=== PATIENT | female | born 1945 | race Caucasian/White ===

== ENCOUNTER 2017-10-09 09:06 | Outpatient (CLI) | payer MEDICARE ==
[2017-10-09 17:59] LABS: BUN - BLOOD UREA NITROGEN 24 mg/dL (6-20); CALCIUM 9.6 mg/dL (8.5-10.3); CARBON DIOXIDE - CO2 25 mmol/L (21-32); CHLORIDE 102 mmol/L (101-111); CHOL/HDL RATIO 4.1 (<4.4); CHOLESTEROL 194 mg/dL; GFR - MDRD 55 (>89); GLUCOSE 139 mg/dL (70-100); HDL CHOLESTEROL 47 mg/dL; LDL CHOLESTEROL,CALCULATED 102 mg/dL; LDL/HDL RATIO 2.2 (<4.4); SODIUM 137 mmol/L (135-145); VLDL CHOLESTEROL 45 mg/dL
[2017-10-09 18:01] LABS: HB2 TOTAL 13.1 g/dL; HEMOGLOBIN A1C 0.75 g/dL; HEMOGLOBIN A1C % 7.4 % (4.6-6.2)
== END 2017-10-09 09:07 | disposition home or self-care (01) ==
LOC: LAB.F 09:06
PROVIDERS: ATTEND Internal Medicine
DX: I10 Essential (primary) hypertension (principal); E11.9 Type 2 diabetes mellitus without complications
CPT/HCPCS: 36415; 80048; 80061; 82043; 83036; 83721; 84443

== ENCOUNTER 2018-04-01 11:55 | Outpatient (CLI) | payer MEDICARE ==
--- NOTE | 2018-04-14 16:07 | Mammography Report ---
Reason: SCREENING MAMMO Procedure Date: 04/01/2018 Accession Number: [id number] / [id number] Procedure: MGN - Screening Mammo Dig Bilat CPT Code: FULL RESULT: EXAM: Screening Mammo Dig Bilat DATE: 04/01/2018 12:13 PM CLINICAL HISTORY: 73 year-old nulliparous female with family history of breast cancer in the mother at age 80 and sister at age 72. TECHNIQUE: Bilateral CC and MLO views were obtained. COMPARISON: No comparison mammograms are available at the time of interpretation. FINDINGS: The breasts demonstrate scattered fibroglandular densities bilaterally. No suspicious masses, clustered microcalcifications, or regions of architectural distortion are identified. IMPRESSION: Negative examination RECOMMENDATION: Routine annual screening unless otherwise clinically indicated. BIRADS CATEGORY 1: Negative STANDARD QUALIFYING STATEMENTS: 1. This examination was reviewed without the aid of Computer-Aided Detection (CAD). 2. A negative or benign imaging report should not delay biopsy if clinically suspicious findings are present. Consider surgical consultation if warrented. More than 5% of cancers are not identified by imaging. 3. Dense breasts may obscure an underlying neoplasm.
== END 2018-04-01 11:56 | disposition home or self-care (01) ==
LOC: DI.N 11:55
DX: Z12.31 Encounter for screening mammogram for malignant neoplasm of breast (principal); Z85.3 Personal history of malignant neoplasm of breast
CPT/HCPCS: 77067

== ENCOUNTER 2018-04-03 15:12 | Outpatient (CLI) | payer MEDICARE ==
[2018-04-03 18:01] LABS: HB2 TOTAL 13.5 g/dL; HEMOGLOBIN A1C 0.75 g/dL; HEMOGLOBIN A1C % 7.2 % (4.6-6.2)
== END 2018-04-03 15:13 | disposition home or self-care (01) ==
LOC: LAB.F 15:12
PROVIDERS: ATTEND Internal Medicine
DX: E11.9 Type 2 diabetes mellitus without complications (principal)
CPT/HCPCS: 36415; 83036

== ENCOUNTER 2018-05-06 08:00 | Outpatient (CLI) | payer MEDICARE | END 2018-05-06 23:59 | LOC: LAB.R 08:00 | PROVIDERS: ATTEND Internal Medicine | DX: Z12.11 Encounter for screening for malignant neoplasm of colon (principal) | CPT/HCPCS: 82270 ==

== ENCOUNTER 2018-10-14 12:49 | Outpatient (CLI) | payer MEDICARE ==
[2018-10-14 17:58] LABS: CREATININE,URINE 90.7 mg/dL; MICROALBUM/CREATININE RATIO,UR 4.4 ug/mg (<30.0); MICROALBUMIN,URINE 0.4 mg/dL (0-300.0)
[2018-10-14 18:00] LABS: ALBUMIN 4.3 g/dL (3.2-5.5); ALBUMIN/GLOBULIN RATIO 1.2 (1.0-2.2); ALKALINE PHOSPHATASE 76 IU/L (42-121); ALT ALANINE AMINOTRANSFERASE 37 IU/L (10-60); AST ASPARTATE AMINOTRANSFERASE 31 IU/L (10-42); BILIRUBIN,TOTAL 0.6 mg/dL (0.2-1.0); BUN - BLOOD UREA NITROGEN 30 mg/dL (6-20); CALCIUM 10.1 mg/dL (8.5-10.3); CARBON DIOXIDE - CO2 29 mmol/L (21-32); CHLORIDE 104 mmol/L (101-111); CHOL/HDL RATIO 4.3 (<4.4); CHOLESTEROL 204 mg/dL; CREATININE 1.1 mg/dL (0.4-1.0); GFR - MDRD 49 (>89); GLUCOSE 133 mg/dL (70-100); HDL CHOLESTEROL 48 mg/dL; LDL CHOLESTEROL,CALCULATED 91 mg/dL; LDL/HDL RATIO 1.9 (<4.4); SODIUM 141 mmol/L (135-145); TOTAL PROTEIN 7.8 g/dL (6.7-8.2); VLDL CHOLESTEROL 65 mg/dL
[2018-10-14 18:42] LABS: HB2 TOTAL 12.6 g/dL; HEMOGLOBIN A1C 0.74 g/dL; HEMOGLOBIN A1C % 7.5 % (4.6-6.2)
== END 2018-10-14 12:50 | disposition home or self-care (01) ==
LOC: LAB.F 12:49
PROVIDERS: ATTEND Internal Medicine
DX: E78.5 Hyperlipidemia, unspecified (principal); E11.9 Type 2 diabetes mellitus without complications
CPT/HCPCS: 36415; 80053; 80061; 82043; 82570; 83036; 83721

== ENCOUNTER 2019-04-03 10:52 | Outpatient (CLI) | payer MEDICARE ==
--- NOTE | 2019-04-06 17:14 | Mammography Report ---
Reason: SCREENING MAMMO Procedure Date: 04/03/2019 Accession Number: [id number] / [id number] Procedure: MGS - Screening Mammo Dig Bilat CPT Code: FULL RESULT: EXAM: Screening Mammo Dig Bilat DATE: 04/03/2019 11:15 AM CLINICAL HISTORY: Routine screening TECHNIQUE: (B) - Bilateral CC and MLO views were obtained. COMPARISON: 04/01/2018, 03/26/2017 and 03/19/2016 PARENCHYMAL PATTERN: (A) - The breasts demonstrate scattered fibroglandular densities bilaterally. FINDINGS: No significant interval change. There are no suspicious masses, calcifications, or areas of distortion. IMPRESSION: Negative examination. BI-RADS category 1. RECOMMENDATION: (ANNUAL) - Recommend routine annual screening mammography. BI-RADS CATEGORY: (1) - Negative. STANDARD QUALIFYING STATEMENTS: 1. This examination was not reviewed with the aid of Computer-Aided Detection (CAD). 2. A negative or benign imaging report should not preclude biopsy if clinically suspicious findings are present. 3. Dense breasts may obscure an underlying neoplasm. 4. This examination was reviewed without the aid of 3D breast imaging (tomosynthesis).
== END 2019-04-03 10:53 | disposition home or self-care (01) ==
LOC: DI.S 10:52
DX: Z12.31 Encounter for screening mammogram for malignant neoplasm of breast (principal)
CPT/HCPCS: 77067

== ENCOUNTER 2019-06-02 11:34 | Outpatient (CLI) | payer MEDICARE ==
[2019-06-02 17:59] LABS: % IRON SATURATION 26 % (20-50); IRON 110 ug/dL (28-170); TOTAL IRON BINDING CAPACITY 430 ug/dL (250-450); TRANSFERRIN 307 mg/dL (192-382)
[2019-06-02 18:01] LABS: FERRITIN 124.2 ng/mL (11.0-306.8)
== END 2019-06-02 11:35 | disposition home or self-care (01) ==
LOC: LAB.S 11:34
PROVIDERS: ATTEND Psychiatry & Neurology Neurology
DX: E11.69 Type 2 diabetes mellitus with other specified complication (principal); R25.1 Tremor, unspecified; R25.2 Cramp and spasm
CPT/HCPCS: 36415; 82607; 82728; 83540; 84466

== ENCOUNTER 2019-08-16 13:53 | Emergency (ER) | payer MEDICARE ==
--- NOTE | 2019-08-16 15:56 | CT Report ---
Reason: trauma Procedure Date: 08/16/2019 Accession Number: [id number] / [id number] Procedure: CT - HEAD WO CPT Code: Final Report FULL RESULT: EXAM: CT HEAD EXAM DATE: 08/16/2019 03:32 PM CLINICAL HISTORY: Trauma. COMPARISON: NONE TECHNIQUE: Multiaxial CT images were obtained from the foramen magnum to the vertex. Reformats: Sagittal and coronal. IV contrast: None. In accordance with CT protocol optimization, one or more of the following dose reduction techniques were utilized for this exam: automated exposure control, adjustment of mA and/or KV based on patient size, or use of iterative reconstructive technique. FINDINGS: There is mild cerebral atrophy and mild multifocal chronic appearing white matter disease, likely from microangiopathy. No evidence of intracranial hemorrhage, mass lesion or mass effect. No cortical infarct. Ventricles are mildly prominent consistent with atrophy. No evidence of focal extraaxial fluid collection. Clear paranasal sinuses and mastoid air cells. Intact skull. IMPRESSION: Chronic brain changes. No acute abnormality. RADIA
[2019-08-16] MEDS ORDERED: PROMETHAZINE INJ 25 MG in SODIUM CHLORIDE 0.9% 50 ML IV STA (16:32)
[2019-08-16] MEDS ORDERED: KETOROLAC 30 MG/ML VIAL IVP STA (16:32)
[2019-08-16] MEDS ORDERED: SODIUM CHLORIDE 0.9% 1,000 ML IV ONE (16:32)
[2019-08-16] MEDS ORDERED: CYCLOBENZAPRINE 10 MG TABLET PO STA (16:33)
[2019-08-16] MEDS ORDERED: DEXAMETHASONE 10 MG/ML VIAL IVP STA (16:33)
--- NOTE | 2019-08-16 16:33 | ED Physician Documentation ---
PD HPI HEAD INJURY - Stated complaint Stated Complaint: MOSQUERA - Chief complaint Chief Complaint: Neuro - History obtained from History obtained from: Patient, Friend - History of Present Illness Mechanism of head injury: Fell Where head injury occurred: Home Timing - onset: How many days ago (5) Pain level now: >10 ("[id number]") Location of injury: Other (Right hip) Associated symptoms: Neck pain. No: LOC, AMS, Amnesia, Nausea / vomiting, Paresthesias Symptoms improve with: Other (Robaxin seem to take the edge off) Symptoms worsen with: Palpation, Movement, Light Recently seen: Not recently seen - Additional information Additional information: This is a 74-year-old woman who fell 5 days ago landing on her right hip and she thinks that she possibly hit her head but did not pass out. Over the past 72 hours she is developed an increasingly more and more "horrible" headache. Across the back of her neck kind of across the shoulders across the occipital ridge and across the forehead. She in the past 24 hours has had 1,500 mg of Tylenol, 1500 mg of ibuprofen and 2 Robaxin. The Robaxin seems to maybe have taken the edge off and there is been sometimes that she has been able to sleep. Her last dose of medication was around 7 AM a gram of Tylenol. She has not felt dizzy or noted any visual changes. She does not have any weakness or paresthesias into the arms or legs. She has been a little bit nauseous but no vomiting. 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 She also coughed 1 time in the emergency department waiting room and had pain across her lower back. She is been having diarrhea which she attributes to antibiotics that she was placed on for a dental infection 3 days ago. She had one time when she blew air out of her nose and it felt a little restricted but she has not had a lot of nasal congestion. No fever. No significant coughing. No palpitations. She is diabetic and has high blood pressure and has not been able to take her medications today because of the nausea. Her friend who is with her has tried to heat and ice the back where she is having pain and has tried massaging it. The heat actually seem to make things worse. Review of Systems Constitutional: denies: Fever Eyes: reports: Photophobia. denies: Loss of vision, Decreased vision Ears: denies: Ear pain Nose: denies: Rhinorrhea / runny nose, Congestion Throat: reports: Dental pain / toothache Respiratory: denies: Cough GI: reports: Nausea, Diarrhea. denies: Vomiting : denies: Incontinent Musculoskeletal: reports: Neck pain, Back pain, Joint pain (Her right hip is little sore). denies: Extremity pain Neurologic: reports: Headache, Head injury. denies: Focal weakness, Numbness, Near syncope, Syncope, Confused, Altered mental status, LOC PD PAST MEDICAL HISTORY - Present Medications Home Medications: Ambulatory Orders Medication Instructions Recorded Confirmed Cyclobenzaprine [Flexeril] 10 mg PO TID PRN #20 tablet 08/16/19 - Allergies Allergies/Adverse Reactions: Allergies Allergy/AdvReac Type Severity Reaction Status Date / Time No Known Drug Allergies Allergy Verified 08/16/19 14:13 PD ED PE NORMAL - Vitals Vital signs reviewed: Yes - General General: Alert and oriented X 3, No acute distress, Well developed/nourished - HEENT HEENT: Atraumatic, PERRL, EOMI, Moist mucous membranes, Pharynx benign - Neck Neck: No bony TTP, No adenopathy, Other (Patient is sitting with her chin down to her chest because lifting her head up seems to make the pain worse. 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 [id number] is intact. She is noted to have a resting tremor and reports a history of essential tremor.) - Psych Psych: Normal mood, Normal affect Results - Vitals Vitals: Vital Signs - 24 hr 08/16/19 08/16/19 08/16/19 14:10 16:20 18:59 Temperature 36.7 C 37.2 C Heart Rate 107 H 95 94 Respiratory 17 16 12 Rate Blood Pressure 144/78 H 167/95 H 135/73 H O2 Saturation 97 99 96 Oxygen O2 Source Room air - Rads (name of study) ct head Radiology: See rad report (neg acute) PD MEDICAL DECISION MAKING - ED course Complexity details: reviewed results, re-evaluated patient, d/w patient ED course: 1749: Patient's head CT was negative and this was discussed with her. I really felt this was more musculoskeletal and she had an IV started was given Toradol 30 mg, Phenergan 25 mg, Decadron 10 mg IV. She was given Flexeril Orally and a liter of fluids. On reevaluation she said her headache was down to about a 6 out of 10 but now had pinpoint tenderness right at the 2 spinous process and really felt like the pain was all emanating from there. Have ordered a CT of the neck and also 2 mg of morphine IV. 1814: CT of the neck is still pending. Care will be turned over to Dr. Hook to follow-up on that but have already written discharge instructions as well as a prescription for Flexeril. Plan for discharge if the CT of the neck is without fracture. Departure - Departure Disposition: 01 Home, Self Care Clinical Impression: Headache Qualifiers: Headache type: unspecified Headache chronicity pattern: acute headache Intractability: not intractable Qualified Code(s): R51 - Headache Cervical strain, acute Qualifiers: Encounter type: initial encounter Qualified Code(s): S16.1XXA - Strain of muscle, fascia and tendon at neck level, initial encounter Condition: Good Instructions: ED Headache Tension, ED Sprain Strain Neck Follow-Up: Merrill Ovalles MD [Primary Care Provider] - Prescriptions: Cyclobenzaprine [Flexeril] 10 mg PO TID PRN #20 tablet PRN Reason: Spasms Comments: Ice your neck and upper back. Avoid heat or aggressive massage or water beating on it. Continue to take ibuprofen and you have been provided a prescription for Flexeril if needed you can take that up to 3 times a day just do not drive or operate machinery if you are taking it. Follow-up with your primary care provider if your pain continues for consideration of physical therapy. On the CT of your neck you do have an incidental 2 cm thyroid nodule, Discuss this with your primary care physician, the radiologist recommends a nonemergent thyroid ultrasound. Discharge Date/Time: 08/16/19 19:02
[2019-08-16] MEDS ORDERED: MORPHINE 2 MG/ML CARPUJECT IVP STA (17:53)
--- NOTE | 2019-08-16 18:40 | CT Report ---
Reason: neck pain Procedure Date: 08/16/2019 Accession Number: [id number] / [id number] Procedure: CT - CERVICAL SPINE WO CPT Code: Final Report FULL RESULT: EXAM: CT CERVICAL SPINE WITHOUT CONTRAST DATE: 08/16/2019 06:12 PM. HISTORY: Neck pain. COMPARISONS: None. TECHNIQUE: Thin-section axial images were acquired of the cervical spine without contrast. Post-processing: Coronal and sagittal reformats. Other: None. In accordance with CT protocol optimization, one or more of the following dose reduction techniques were utilized for this exam: automated exposure control, adjustment of mA and/or KV based on patient size, or use of iterative reconstructive technique. FINDINGS: Alignment: No scoliosis or spondylolisthesis. Bones: No fracture or bone lesion. Interspace Levels/Facets: No acute malalignment. Moderate C4-C5, C5-C6, C6-C7, C7-T1 disk level degenerative changes with disk height loss and osteophytosis. No significant central canal stenosis seen at a level. Moderate left and mild right C4-C5 neural foraminal stenoses secondary to multifactorial degenerative changes. Mild C5-C6 and C6-C7 left-sided neural foraminal stenosis secondary to multifactorial degenerative changes. Other: The paravertebral and prevertebral soft tissues are unremarkable. The lung apices are clear. Approximately 2 cm left thyroid nodule. IMPRESSION: 1. Moderate cervical spondylosis without acute abnormality seen. 2. Approximately 2 cm left thyroid nodule. ACR recommends nonemergent thyroid ultrasound for further evaluation. RADIA
--- NOTE | 2019-08-16 18:52 | ED Physician Documentation ---
ED Addendum - Addendum Addendum: 08/16/19 18:45 Patient signed out to me at shift change by Dr. Velazquez. Briefly this is a woman who has had a posttraumatic headache and at signout the plan was to follow-up on cervical spine CT and check on her symptoms. The cervical spine CT was read as having multiple level spondylosis and a thyroid nodule needing follow-up. This was discussed with the patient. 08/16/19 18:54 Her headache was much better though and she verbalized understanding of the need for follow-up regarding the cervical spine CT and incidental finding.
[2019-08-16] MEDS ORDERED: HYDROcod/ACET 5/325 Prepack 4 PO STA (18:54)
[2019-08-16 19:00] VITALS: BP 135/73
== END 2019-08-16 19:02 | disposition home or self-care (01) ==
LOC: ED 13:53
DX: G44.309 Post-traumatic headache, unspecified, not intractable (principal); S16.1XXA Strain of muscle, fascia and tendon at neck level, initial encounter; W19.XXXA Unspecified fall, initial encounter; E04.1 Nontoxic single thyroid nodule
CPT/HCPCS: 70450; 72125; 96365; 96375; 99284; A9270; J7040

== ENCOUNTER 2019-10-02 14:48 | Outpatient (CLI) | payer MEDICARE ==
[2019-10-02 17:55] LABS: BASOPHILS # (AUTO) 0.1 10^3/uL (0.0-0.1); BASOPHILS % (AUTO) 1.1 %; EOSINOPHILS # (AUTO) 0.3 10^3/uL (0.0-0.7); EOSINOPHILS % (AUTO) 4.6 %; HGB - HEMOGLOBIN 11.6 g/dL (12.0-16.0); LYMPHOCYTES # (AUTO) 1.1 10^3/uL (1.5-3.5); LYMPHOCYTES % (AUTO) 20.1 %; MEAN CORPUSCULAR HEMOGLOBIN 30.6 pg (27.0-31.0); MEAN CORPUSCULAR HGB CONC 31.9 g/dL (32.0-36.0); MEAN PLATELET VOLUME 12.7 fL (7.9-10.8); MONOCYTES # (AUTO) 0.6 10^3/uL (0.0-1.0); MONOCYTES % (AUTO) 10.8 %; NEUTROPHILS # (AUTO) 3.4 10^3/uL (1.5-6.6); NEUTROPHILS % (AUTO) 62.8 %; PLT - PLATELET COUNT 210 10^3/uL (130-450); RED BLOOD COUNT 3.79 10^6/uL (4.20-5.40); RED CELL DISTRIBUTION WIDTH 12.9 % (12.0-15.0); WHITE BLOOD COUNT 5.4 x10^3/uL (4.8-10.8)
[2019-10-02 18:09] LABS: ALBUMIN 4.1 g/dL (3.2-5.5); ALBUMIN/GLOBULIN RATIO 1.2 (1.0-2.2); BILIRUBIN,TOTAL 0.4 mg/dL (0.2-1.0); CALCIUM 10.6 mg/dL (8.5-10.3); CREATININE 1.1 mg/dL (0.4-1.0); TOTAL PROTEIN 7.5 g/dL (6.7-8.2)
[2019-10-02 18:49] LABS: HEMOGLOBIN A1C 0.83 g/dL; HEMOGLOBIN A1C % 8.5 % (4.6-6.2)
== END 2019-10-02 14:49 | disposition home or self-care (01) ==
LOC: LAB.S 14:48
PROVIDERS: ATTEND Family Medicine
DX: G50.0 Trigeminal neuralgia (principal); E11.9 Type 2 diabetes mellitus without complications
CPT/HCPCS: 36415; 80053; 83036; 85025

== ENCOUNTER 2019-10-05 09:31 | Outpatient (CLI) | payer MEDICARE ==
[2019-10-05 17:20] LABS: CHOL/HDL RATIO 4.1 (<4.4); CHOLESTEROL 173 mg/dL; HDL CHOLESTEROL 42 mg/dL; LDL CHOLESTEROL,CALCULATED 84 mg/dL; VLDL CHOLESTEROL 47 mg/dL
== END 2019-10-05 09:32 | disposition home or self-care (01) ==
LOC: LAB.S 09:31
PROVIDERS: ATTEND Family Medicine
DX: E78.5 Hyperlipidemia, unspecified (principal)
CPT/HCPCS: 36415; 80061; 83721

== ENCOUNTER 2019-11-05 12:49 | Outpatient (CLI) | payer MEDICARE ==
[2019-11-05] MEDS ORDERED: GADOBUTROL 7.5 MMOL/7.5 ML VIAL ONE (12:58)
[2019-11-05] MEDS ORDERED: GADOBUTROL 7.5 MMOL/7.5 ML VIAL IVP ONE (13:54)
--- NOTE | 2019-11-05 17:37 | MRI Report ---
Reason: HEADACHE, TRIGEMINAL NEURALGIA, RT Procedure Date: 11/05/2019 Accession Number: [id number] / [id number] Procedure: MRI - Brain W/WO CPT Code: Final Report FULL RESULT: EXAM: MRI BRAIN AND INTERNAL AUDITORY CANAL (IAC),WITHOUT AND WITH CONTRAST. EXAM DATE: 11/05/2019 02:15 PM. CLINICAL HISTORY: 74-year-old presenting with headache and right-sided trigeminal neuralgia symptoms. Evaluate for intracranial pathology. COMPARISON: HEAD W/O 08/16/2019 3:24 PM CERVICAL SPINE W/O 08/16/2019 6:10 PM. TECHNIQUE: Multiplanar, multisequence T1-weighted and fluid-sensitive MRI sequences of the brain and IACs were performed before and after administration of intravenous contrast. Other: None. IV Contrast: 6 cc Gadavist. FINDINGS: Brain Volume: Normal for age. Parenchyma/Dura: No acute parenchymal hemorrhage, mass, or midline shift. There are mild to moderate bilateral areas of T2/FLAIR signal hyperintensity seen including patchy FLAIR signal hyperintensity within the alex. There are no areas of restricted diffusion seen to suggest acute infarct.There are no abnormal areas of parenchymal hemosiderin deposition seen. No abnormal enhancement. Internal Auditory Canals (IACs): There is a 7 mm loop of the left AICA that projects into the left internal auditory canal. There appears to be a vascular structure, possibly a branch of the right ICA that appears to abut the superior aspect of the right trigeminal nerve (series 901, image 57). No cranial nerve lesion or inflammatory process identified. The inner ear structure are symmetric and unremarkable. Ventricles/Cisterns: No hydrocephalus. No abnormal extra-axial fluid collection or hemorrhage. Orbits: Changes of bilateral lens replacement. Sella Turcica: The pituitary gland, cavernous sinuses, suprasellar cistern and optic chiasm are unremarkable. Vasculature: Normal signal flow void is seen in the major arterial structures at the skull base. The dural sinuses are patent and enhance normally. Sinuses: No acute sinus disease. Bones: No focal pathologic appearing marrow signal changes. Other: None. IMPRESSION: 1. No definite acute intracranial pathology seen; specifically, no acute infarct, acute intracranial hemorrhage, mass, hydrocephalus, or midline shift. No abnormal postcontrast enhancement. 2. No definite mass or inflammatory process seen within the posterior fossa or internal auditory canals. 3. There appears to be a vascular structure, possibly a branch of the right ICA that appears to abut the superior aspect of the right trigeminal nerve (series 901, image 57). Clinical correlation for potential neurovascular compromise is suggested. 4. There is a 7 mm loop of the left AICA that projects into the left internal auditory canal. 5. Mild to moderate white matter changes that are nonspecific, but may represent sequela of chronic small vessel ischemic disease. RADIA
== END 2019-11-05 12:50 | disposition home or self-care (01) ==
LOC: DI 12:49
PROVIDERS: ATTEND Family Medicine
DX: G50.0 Trigeminal neuralgia (principal)
CPT/HCPCS: 70553; A9585

== ENCOUNTER 2020-01-15 11:40 | Outpatient (CLI) | payer MEDICARE ==
[2020-01-15 12:09] LABS: HB2 TOTAL 12.4 g/dL; HEMOGLOBIN A1C 0.78 g/dL; HEMOGLOBIN A1C % 7.9 % (4.6-6.2)
[2020-01-15 12:13] LABS: ALBUMIN 4.2 g/dL (3.2-5.5); ALBUMIN/GLOBULIN RATIO 1.1 (1.0-2.2); ALKALINE PHOSPHATASE 117 IU/L (42-121); ALT ALANINE AMINOTRANSFERASE 57 IU/L (10-60); AST ASPARTATE AMINOTRANSFERASE 64 IU/L (10-42); BILIRUBIN,TOTAL 0.7 mg/dL (0.2-1.0); BUN - BLOOD UREA NITROGEN 28 mg/dL (6-20); CARBON DIOXIDE - CO2 26 mmol/L (21-32); CHLORIDE 102 mmol/L (101-111); CHOL/HDL RATIO 4.5 (<4.4); CHOLESTEROL 195 mg/dL; CREATININE 1.4 mg/dL (0.4-1.0); GLUCOSE 156 mg/dL (70-100); HDL CHOLESTEROL 43 mg/dL; LDL CHOLESTEROL,CALCULATED 111 mg/dL; LDL/HDL RATIO 2.6 (<4.4); SODIUM 138 mmol/L (135-145); TOTAL PROTEIN 7.9 g/dL (6.7-8.2); VLDL CHOLESTEROL 41 mg/dL
== END 2020-01-15 11:41 | disposition home or self-care (01) ==
LOC: LAB 11:40
PROVIDERS: ATTEND Internal Medicine
DX: E11.9 Type 2 diabetes mellitus without complications (principal)
CPT/HCPCS: 36415; 80053; 80061; 83036; 83721

== ENCOUNTER 2020-04-11 11:30 | Outpatient (CLI) | payer MEDICARE ==
[2020-04-11 16:06] LABS: BASOPHILS # (AUTO) 0.1 10^3/uL (0.0-0.1); BASOPHILS % (AUTO) 1.1 %; EOSINOPHILS # (AUTO) 0.2 10^3/uL (0.0-0.7); EOSINOPHILS % (AUTO) 4.6 %; HGB - HEMOGLOBIN 12.5 g/dL (12.0-16.0); LYMPHOCYTES # (AUTO) 0.8 10^3/uL (1.5-3.5); LYMPHOCYTES % (AUTO) 18.8 %; MEAN CORPUSCULAR HEMOGLOBIN 30.6 pg (27.0-31.0); MEAN CORPUSCULAR HGB CONC 31.5 g/dL (32.0-36.0); MEAN CORPUSCULAR VOLUME 97.3 fL (81.0-99.0); MEAN PLATELET VOLUME 11.9 fL (7.9-10.8); MONOCYTES # (AUTO) 0.6 10^3/uL (0.0-1.0); MONOCYTES % (AUTO) 12.6 %; NEUTROPHILS # (AUTO) 2.7 10^3/uL (1.5-6.6); NEUTROPHILS % (AUTO) 62.4 %; PLT - PLATELET COUNT 241 10^3/uL (130-450); RED BLOOD COUNT 4.08 10^6/uL (4.20-5.40); WHITE BLOOD COUNT 4.4 x10^3/uL (4.8-10.8)
[2020-04-11 16:18] LABS: ALBUMIN 4.5 g/dL (3.2-5.5); ALBUMIN/GLOBULIN RATIO 1.3 (1.0-2.2); BILIRUBIN,TOTAL 0.9 mg/dL (0.2-1.0); CALCIUM 10.3 mg/dL (8.5-10.3); CREATININE 0.9 mg/dL (0.4-1.0)
--- NOTE | 2020-04-11 18:13 | XRAY Report ---
PROCEDURE: Ribs w/PA Chest RT INDICATIONS: RIB PAIN, RIGHT SIDE TECHNIQUE: 2 views of the right ribs were acquired, along with a single view chest. COMPARISON: No dedicated rib plain films available for review. FINDINGS: Surgical changes and devices: None. Bones and chest wall: No fractures or dislocations. No suspicious bony lesions. Overlying soft tis sues appear unremarkable. A plain film surface marker was placed in the area of maximal tenderness r ight lower ribs, but this is below the diaphragm level, largely obscured by overlying soft tissue. Lungs and pleura: No pleural effusions or pneumothorax. Lungs appear clear. Mediastinum: Mediastinal contours appear normal. Heart size is normal. IMPRESSION: Limited quality of visualization to the low positioning of the area of maximal tenderness as discusse d above. No pneumothorax, no fracture found. Please note that delayed plain films may allow detection of nondisplaced rib fracture subsequently, in approximately 5 days. Nuclear medicine bone scanning a lso allows excellent visualization of rib fractures. Reviewed by: Dimitri Piña MD on 04/11/2020 2:34 PM PDT Approved by: Dimitri Piña MD on 04/11/2020 2:34 PM PDT Station ID: [id number]
[2020-04-11 19:30] LABS: HEMOGLOBIN A1c% 7.7 % (4.27-6.07)
== END 2020-04-11 11:31 | disposition home or self-care (01) ==
LOC: DI.S 11:30
PROVIDERS: ATTEND Family Medicine
DX: R07.81 Pleurodynia (principal); E11.9 Type 2 diabetes mellitus without complications; R10.11 Right upper quadrant pain; M81.8 Other osteoporosis without current pathological fracture
CPT/HCPCS: 36415; 77080; 80053; 83036; 85025

== ENCOUNTER 2020-04-11 13:58 | Outpatient (CLI) | payer MEDICARE ==
--- NOTE | 2020-04-13 07:15 | Mammography Report ---
BILATERAL DIGITAL SCREENING MAMMOGRAM 3D/2D: 04/11/2020 CLINICAL: Routine screening. Family history of breast cancer. Comparison is made to exams dated: 04/03/2019 mammogram, 04/01/2018 mammogram - [facility] nt, 03/26/2017 mammogram, and 03/19/2016 mammogram - [facility]. There are scattered fibroglandular elements in both breasts. No significant masses, calcifications, or other findings are seen in either breast. There has been no significant interval change. IMPRESSION: NEGATIVE There is no mammographic evidence of malignancy. A 1 year screening mammogram is recommended. This exam was interpreted at Station ID: [id number]. NOTE: For mammograms, a report in lay terms will be sent to the patient. Approximately 15% of breast malignancies will not be visualized mammographically. In the management of a palpable breast mass, a negative mammogram must not discourage biopsy of a clinically suspicious lesion. Electronically Signed By: Neeru blair/tammy:04/11/2020 14:45:19 ACR BI-RADS Category 1: Negative 3341F PARENCHYMAL PATTERN: (A) - The breast(s) demonstrate(s) scattered fibroglandular densities. BI-RADS CATEGORY: (1) - 1 RECOMMENDATION: (ANNUAL) - Recommend routine annual screening mammography. [id number] 1 year screening LATERALITY: (B)
== END 2020-04-11 13:59 | disposition home or self-care (01) ==
LOC: DI 13:58
PROVIDERS: ATTEND Registered Nurse
DX: Z12.31 Encounter for screening mammogram for malignant neoplasm of breast (principal)
CPT/HCPCS: 77063; 77067

== ENCOUNTER 2020-04-11 14:00 | Outpatient (CLI) | payer MEDICARE ==
--- NOTE | 2020-04-11 15:57 | DEXA Report ---
PROCEDURE: Dexa Spine and/or Hip INDICATIONS: OSTEOPENIA TECHNIQUE: Dual energy x-ray absorptiometry (DXA) was performed on a C-nario System. Regions measur ed are the AP Spine, femoral neck, and if needed forearm. COMPARISON: None. FINDINGS: Lumbar Spine: Bone Mineral Density 0.844 g/cm/cm,T score -2.7, osteoporosis Left Hip: Bone Mineral Density 0.752 g/cm/cm,T score -2.0, osteopenia Left Femoral Neck: Bone Mineral Density 0.749 g/cm/cm, T score -2.1, osteopenia (T score greater or equal to -1.0: NORMAL) (T score from -1.1 to -2.4: OSTEOPENIA) (T score less than or equal to -2.5 to: OSTEOPOROSIS) Impression: Osteoporosis at the lumbosacral spine, osteopenia at the left hip overall and the left fe moral neck. Patients with diagnosis of osteoporosis or osteopenia should have regular bone mineral density assess ment. For those eligible for Medicare, routine testing is allowed once every 2 years. Testing frequ ency can be increased for patients who have rapidly progressing disease or for those who are receivin g medical therapy to restore bone mass. Reviewed by: Dimitri Piña MD on 04/11/2020 3:55 PM PDT Approved by: Dimitri Piña MD on 04/11/2020 3:55 PM PDT Station ID: [id number]
== END 2020-04-11 14:01 | disposition home or self-care (01) ==
LOC: DI 14:00
PROVIDERS: ATTEND Registered Nurse
DX: M81.8 Other osteoporosis without current pathological fracture (principal)
CPT/HCPCS: 77080

== ENCOUNTER 2020-07-01 12:22 | Outpatient (CLI) | payer MEDICARE ==
[2020-07-01 20:03] LABS: CREATININE 1.1 mg/dL (0.4-1.0)
[2020-07-01 20:15] LABS: HEMOGLOBIN A1c% 7.4 % (4.27-6.07)
== END 2020-07-01 12:23 | disposition home or self-care (01) ==
LOC: LAB.S 12:22
PROVIDERS: ATTEND Registered Nurse
DX: I12.9 Hypertensive chronic kidney disease with stage 1 through stage 4 chronic kidney disease, or unspecified chronic kidney disease (principal); E11.22 Type 2 diabetes mellitus with diabetic chronic kidney disease; N18.30 Chronic kidney disease, stage 3 unspecified
CPT/HCPCS: 36415; 80048; 82043; 82570; 83036

== ENCOUNTER 2020-07-02 08:00 | Outpatient (CLI) | payer MEDICARE ==
[2020-07-02 14:53] LABS: CREATININE,URINE 63.9 mg/dL; MICROALBUM/CREATININE RATIO,UR 6.3 ug/mg (<30.0); MICROALBUMIN,URINE 0.4 mg/dL (0-300.0)
== END 2020-07-02 23:59 | disposition home or self-care (01) ==
LOC: LAB.S 08:00
PROVIDERS: ATTEND Registered Nurse
DX: I12.9 Hypertensive chronic kidney disease with stage 1 through stage 4 chronic kidney disease, or unspecified chronic kidney disease (principal); N18.30 Chronic kidney disease, stage 3 unspecified; E11.22 Type 2 diabetes mellitus with diabetic chronic kidney disease
CPT/HCPCS: 82043; 82570

== ENCOUNTER 2020-12-22 10:03 | Outpatient (CLI) | payer MEDICARE ==
[2020-12-22 15:12] LABS: ALBUMIN 4.2 g/dL (3.2-5.5); ALBUMIN/GLOBULIN RATIO 1.2 (1.0-2.2); ALKALINE PHOSPHATASE 80 IU/L (42-121); ALT ALANINE AMINOTRANSFERASE 50 IU/L (10-60); AST ASPARTATE AMINOTRANSFERASE 38 IU/L (10-42); BILIRUBIN,TOTAL 0.7 mg/dL (0.2-1.0); BUN - BLOOD UREA NITROGEN 29 mg/dL (6-20); CARBON DIOXIDE - CO2 28 mmol/L (21-32); CHLORIDE 101 mmol/L (101-111); CHOLESTEROL 194 mg/dL; CREATININE 1.1 mg/dL (0.4-1.0); GFR - MDRD 49 (>89); GLUCOSE 158 mg/dL (70-100); HDL CHOLESTEROL 48 mg/dL; LDL CHOLESTEROL,CALCULATED 102 mg/dL; LDL/HDL RATIO 2.1 (<4.4); POTASSIUM 4.4 mmol/L (3.5-5.0); SODIUM 139 mmol/L (135-145); TOTAL PROTEIN 7.8 g/dL (6.7-8.2); TRIGLYCERIDES 220 mg/dL; VLDL CHOLESTEROL 44 mg/dL
[2020-12-22 15:22] LABS: THYROID STIMULATING HORMONE 2.32 uIU/mL (0.34-5.60)
[2020-12-22 15:23] LABS: BASOPHILS # (AUTO) 0.1 10^3/uL (0.0-0.1); BASOPHILS % (AUTO) 1.3 %; EOSINOPHILS # (AUTO) 0.2 10^3/uL (0.0-0.7); EOSINOPHILS % (AUTO) 3.6 %; HGB - HEMOGLOBIN 12.3 g/dL (12.0-16.0); LYMPHOCYTES # (AUTO) 1.5 10^3/uL (1.5-3.5); LYMPHOCYTES % (AUTO) 24.4 %; MEAN CORPUSCULAR HEMOGLOBIN 31.5 pg (27.0-31.0); MEAN CORPUSCULAR HGB CONC 31.5 g/dL (32.0-36.0); MEAN CORPUSCULAR VOLUME 99.7 fL (81.0-99.0); MEAN PLATELET VOLUME 11.8 fL (7.9-10.8); MONOCYTES # (AUTO) 0.8 10^3/uL (0.0-1.0); MONOCYTES % (AUTO) 12.7 %; NEUTROPHILS # (AUTO) 3.6 10^3/uL (1.5-6.6); NEUTROPHILS % (AUTO) 57.4 %; PLT - PLATELET COUNT 218 10^3/uL (130-450); RED BLOOD COUNT 3.91 10^6/uL (4.20-5.40); WHITE BLOOD COUNT 6.3 x10^3/uL (4.8-10.8)
[2020-12-22 15:38] LABS: CREATININE,URINE 73.7 mg/dL; MICROALBUM/CREATININE RATIO,UR 4.1 ug/mg (<30.0); MICROALBUMIN,URINE 0.3 mg/dL (0-300.0)
[2020-12-22 20:28] LABS: ESTIMATED AVERAGE GLUCOSE 160 mg/dL (70-100); HEMOGLOBIN A1c% 7.2 % (4.27-6.07)
== END 2020-12-22 10:04 | disposition home or self-care (01) ==
LOC: LAB.S 10:03
PROVIDERS: ATTEND Registered Nurse
DX: E78.5 Hyperlipidemia, unspecified (principal); E11.9 Type 2 diabetes mellitus without complications; I10 Essential (primary) hypertension
CPT/HCPCS: 36415; 80053; 80061; 82043; 82570; 83036; 83721; 84443; 85025

== ENCOUNTER 2021-04-12 10:49 | Outpatient (CLI) | payer MEDICARE ==
--- NOTE | 2021-04-13 08:39 | Mammography Report ---
BILATERAL DIGITAL SCREENING MAMMOGRAM 3D/2D WITH EXAGGERATED CC: 04/12/2021 CLINICAL: Family history of breast cancer. Comparison is made to exams dated: 04/11/2020 mammogram, 04/03/2019 mammogram, 04/01/2018 mammogram - [facility], and 03/26/2017 mammogram - [facility]. There are scattered fibroglandular elements in both breasts. No significant masses, calcifications, or other findings are seen in either breast. There has been no significant interval change. IMPRESSION: NEGATIVE There is no mammographic evidence of malignancy. A 1 year screening mammogram is recommended. This exam was interpreted at Station ID: [id number]. NOTE: For mammograms, a report in lay terms will be sent to the patient. Approximately 15% of breast malignancies will not be visualized mammographically. In the management of a palpable breast mass, a negative mammogram must not discourage biopsy of a clinically suspicious lesion. Electronically Signed By: Artur Hall M.D., jr/tammy:04/12/2021 11:58:01 ACR BI-RADS Category 1: Negative 3341F PARENCHYMAL PATTERN: (A) - The breast(s) demonstrate(s) scattered fibroglandular densities. BI-RADS CATEGORY: (1) - 1 RECOMMENDATION: (ANNUAL) - Recommend routine annual screening mammography. [id number] 1 year screening LATERALITY: (B)
== END 2021-04-12 10:50 | disposition home or self-care (01) ==
LOC: DI.S 10:49
DX: Z12.31 Encounter for screening mammogram for malignant neoplasm of breast (principal); Z80.3 Family history of malignant neoplasm of breast

== ENCOUNTER 2021-04-26 10:58 | Outpatient (CLI) | payer MEDICARE ==
[2021-04-26 15:11] LABS: CALCIUM 9.8 mg/dL (8.5-10.3); POTASSIUM 4.6 mmol/L (3.5-5.0)
== END 2021-04-26 10:59 | disposition home or self-care (01) ==
LOC: LAB.S 10:58
PROVIDERS: ATTEND Psychiatry & Neurology Neurology
DX: R51.9 Headache, unspecified (principal)
CPT/HCPCS: 36415; 80048

== ENCOUNTER 2021-05-25 12:47 | Outpatient (CLI) | payer MEDICARE ==
[2021-05-25] MEDS ORDERED: IOVERSOL 320 100 ML VIAL IVP ONE (13:09)
[2021-05-25] MEDS ORDERED: IOVERSOL 320 50 ML VIAL ONE (13:28)
--- NOTE | 2021-05-25 16:51 | CT Report ---
PROCEDURE: Abdomen/Pelvis W INDICATIONS: LEFT LOWER ABD PAIN CONTRAST: IV CONTRAST: Optiray 320 ml: 100 PO CONTRAST: Optiray 320 ml50 TECHNIQUE: After the administration of IV and oral contrast, 5 mm thick sections acquired from the diaphragms to the symphysis. 5 mm thick coronal and sagittal reformats were acquired. For radiation dose reducti on, the following was used: automated exposure control, adjustment of mA and/or kV according to louis ent size. COMPARISON: None. FINDINGS: ABDOMEN: Lung bases: No acute findings. Heart:Normal in size. No pericardial effusion. Liver: Hepatic steatosis. Gallbladder: Negative. Bile ducts: Normal. Pancreas: Normal. Spleen: Normal. Adrenals: Normal. Kidneys and ureters: Bilateral renal cortical scarring/atrophy. No hydronephrosis. The ureters appear decompressed. Stomach and duodenum: Normal. Bowel: Large amount of stool seen throughout the colon. There is possible mural thickening involving the hepatic flexure and ascending colon although limited evaluation given decompressed status. Normal appearance of the appendix. Other: No free fluid or air. Abdominal nodes: Normal. Aorta: Normal in size. IVC: Normal. Ventral wall: Normal. PELVIS: Bladder: Normal. Pelvic nodes: Normal. Inguinal: No hernia. Bones: No vertebral body compression fracture. No suspicious bone lesion. Diffuse mottled lytic [place] and facet arthropathy. IMPRESSION: Large amount of stool seen in the colon suggestive of fecal retention/constipation. Additionally, pos sible mural thickening involving the naty ascending colon and hepatic flexure raising possibility of i nfectious or inflammatory colitis. No evidence of acute diverticulitis. Hepatic steatosis Additional chronic and incidental findings as above. Reviewed by: Slick Up MD on 05/25/2021 4:50 PM PDT Approved by: Slick Up MD on 05/25/2021 4:50 PM PDT Station ID: [id number]
[2021-05-25] MEDS: IOVERSOL 320 100 ML VIAL IVP ONE (22:41)
[2021-05-25] MEDS: IOVERSOL 320 50 ML VIAL PO ONE (22:41)
== END 2021-05-25 12:48 | disposition home or self-care (01) ==
LOC: DI 12:47
PROVIDERS: ATTEND Surgery
DX: R19.5 Other fecal abnormalities (principal); R10.32 Left lower quadrant pain; K76.0 Fatty (change of) liver, not elsewhere classified
CPT/HCPCS: 74177; Q9967

== ENCOUNTER 2021-06-29 12:08 | Outpatient (CLI) | payer MEDICARE ==
[2021-06-29 14:34] LABS: BASOPHILS % (AUTO) 0.9 %; EOSINOPHILS # (AUTO) 0.2 10^3/uL (0.0-0.7); EOSINOPHILS % (AUTO) 4.2 %; HCT - HEMATOCRIT 35.6 % (37.0-47.0); HGB - HEMOGLOBIN 11.2 g/dL (12.0-16.0); LYMPHOCYTES # (AUTO) 1.1 10^3/uL (1.5-3.5); LYMPHOCYTES % (AUTO) 25.2 %; MEAN CORPUSCULAR HEMOGLOBIN 30.9 pg (27.0-31.0); MEAN CORPUSCULAR HGB CONC 31.5 g/dL (32.0-36.0); MEAN CORPUSCULAR VOLUME 98.1 fL (81.0-99.0); MEAN PLATELET VOLUME 11.4 fL (7.9-10.8); MONOCYTES # (AUTO) 0.5 10^3/uL (0.0-1.0); MONOCYTES % (AUTO) 11.6 %; NEUTROPHILS # (AUTO) 2.5 10^3/uL (1.5-6.6); NEUTROPHILS % (AUTO) 57.9 %; PLT - PLATELET COUNT 179 10^3/uL (130-450); RED BLOOD COUNT 3.63 10^6/uL (4.20-5.40); RED CELL DISTRIBUTION WIDTH 12.6 % (12.0-15.0); WHITE BLOOD COUNT 4.3 x10^3/uL (4.8-10.8)
[2021-06-29 14:42] LABS: CREATININE,URINE 115.7 mg/dL; MICROALBUM/CREATININE RATIO,UR 9.5 ug/mg (<30.0); MICROALBUMIN,URINE 1.1 mg/dL (0-300.0)
[2021-06-29 15:27] LABS: ALBUMIN 4.3 g/dL (3.2-5.5); ALBUMIN/GLOBULIN RATIO 1.3 (1.0-2.2); ALKALINE PHOSPHATASE 82 IU/L (42-121); ALT ALANINE AMINOTRANSFERASE 38 IU/L (10-60); AST ASPARTATE AMINOTRANSFERASE 43 IU/L (10-42); BILIRUBIN,TOTAL < 0.2 mg/dL (0.2-1.0); BUN - BLOOD UREA NITROGEN 25 mg/dL (6-20); CALCIUM 9.7 mg/dL (8.5-10.3); CARBON DIOXIDE - CO2 27 mmol/L (21-32); CHLORIDE 103 mmol/L (101-111); CHOL/HDL RATIO 3.9 (<4.4); CHOLESTEROL 181 mg/dL; GFR - MDRD 54 (>89); GLUCOSE 144 mg/dL (70-100); HDL CHOLESTEROL 47 mg/dL; LDL CHOLESTEROL,CALCULATED 95 mg/dL; POTASSIUM 4.6 mmol/L (3.5-5.0); SODIUM 138 mmol/L (135-145); TOTAL PROTEIN 7.5 g/dL (6.7-8.2); TRIGLYCERIDES 193 mg/dL; VLDL CHOLESTEROL 39 mg/dL
[2021-06-29 15:42] LABS: THYROID STIMULATING HORMONE 1.87 uIU/mL (0.34-5.60)
[2021-06-29 20:34] LABS: ESTIMATED AVERAGE GLUCOSE 166 mg/dL (70-100); HEMOGLOBIN A1c% 7.4 % (4.27-6.07)
== END 2021-06-29 12:09 | disposition home or self-care (01) ==
LOC: LAB.S 12:08
PROVIDERS: ATTEND Registered Nurse
DX: E11.9 Type 2 diabetes mellitus without complications (principal); R19.5 Other fecal abnormalities; R10.32 Left lower quadrant pain; E04.1 Nontoxic single thyroid nodule; E78.5 Hyperlipidemia, unspecified; I10 Essential (primary) hypertension
CPT/HCPCS: 36415; 80053; 80061; 82043; 82570; 83036; 83721; 84443; 85025

== ENCOUNTER 2021-08-29 08:01 | Day surgery (SDC) | payer MEDICARE ==
[2021-08-29] MEDS ORDERED: LACTATED RINGERS 1,000 ML IV ONE ×2 (08:05→10:11)
--- NOTE | 2021-08-29 08:48 | ANESTHESIA ---
Pre-Anesthesia VS, & Labs - Diagnosis screening - Procedure colonoscopy Vital Signs: Temp Pulse Resp BP Pulse Ox 36.2 C L 95 10 L 147/75 H 97 08/29/21 08:13 08/29/21 08:13 08/29/21 08:13 08/29/21 08:13 08/29/21 08:13 Height: 5 ft 2 in Weight (kg): 58.5 kg Body Mass Index: 23.6 BMI Classification: Healthy weight - NPO >8 hours - Is Patient ?: No - Lab Results Current Lab Results: Laboratory Tests 08/29/21 08:22: POC Whole Bld Glucose 157 H Home Medications and Allergies Home Medications: Ambulatory Orders Indomethacin [Indomethacin ER] 75 mg PO DAILY 08/25/21 [place]-3/Dha/Epa/Fish Oil [Fish Oil 1,000 mg Softgel] 2 each PO DAILY 08/25/21 Cholecalciferol (Vitamin D3) [Vitamin D3] 2,000 unit PO DAILY 02/05/20 Losartan Potassium 100 mg PO DAILY 02/05/20 Metformin HCl 500 mg PO BID 02/05/20 Mirtazapine 15 mg PO QPM 02/05/20 Propranolol HCl 180 mg PO BID 02/05/20 Simvastatin 80 mg PO DAILY 02/05/20 Venlafaxine HCl [Venlafaxine HCl ER] 150 mg PO BID 02/05/20 flaxseed oiL [Flaxseed Oil] 1,000 mg PO DAILY 02/05/20 Indomethacin [Indomethacin ER] 75 mg PO DAILY 08/25/21 [place]-3/Dha/Epa/Fish Oil [Fish Oil 1,000 mg Softgel] 2 each PO DAILY 08/25/21 Allergies/Adverse Reactions: Allergies Allergy/AdvReac Type Severity Reaction Status Date / Time gabapentin Allergy Unknown Verified 08/29/21 08:27 Anes History & Medical History - Anesthetic History Anesthesia Complications: reports: No previous complications Family history of Anesthesia Complications: Denies Family history of Malignant Hyperthermia: Denies - Medical History Cardiovascular: reports: Hypertension, High cholesterol Pulmonary: reports: Asthma, Other (Covid + 08/04/2021 with cough, sore throat- now resolved and covid test negative 08/28/21) Gastrointestinal: reports: Chronic constipation, Hemorrhoids Urinary: reports: None Neuro: reports: Tremors Musculoskeletal: reports: Osteoporosis, Osteopenia Endocrine/Autoimmune: reports: Type 2 diabetes Blood Disorders: reports: None Skin: reports: None Smoking Status: Never smoker - Surgical History General: reports: Colonoscopy Eyes Ears Nose Throat (EENT): reports: Cataracts, Tonsil/Adenoidectomy Gynecologic: reports: Oophrectomy Exam General: Alert, Oriented x3, Cooperative Dental: WNL Mouth Openin Fingerbreadth Neck Mobility: Normal Mallampati classification: II Thyromental Distance: 4-6 cm Respiratory: Lungs clear Plan Anesthesia Type: Total IV Consent for Procedure(s) Verified and Reviewed: Yes Code Status: Attempt Resuscitation ASA classification: 3-Severe systemic disease Is this case an emergency?: No
[2021-08-29 10:41] VITALS: BP 109/59
--- NOTE | 2021-08-29 10:49 | ANESTHESIA POST OP EVALUATION ---
Anesthesia Post Eval - Post Anesthesia Eval Vitals: Last Vital Signs Temp 36.0 C L 08/29/21 10:40 Pulse 80 08/29/21 10:40 Resp 14 08/29/21 10:40 BP 109/59 L 08/29/21 10:40 Pulse Ox 98 08/29/21 10:40 CV Function Including HR & BP: Stable Pain Control: Satisfactory Nausea & Vomiting: Negative Mental Status: Baseline Respiratory Status: Airway Patent Hydration Status: Satisfactory Anesthesia Complications: None
== END 2021-08-29 08:02 | disposition home or self-care (01) ==
LOC: SDS 08:01
PROVIDERS: ATTEND Surgery
DX: K57.31 Diverticulosis of large intestine without perforation or abscess with bleeding (principal); K59.09 Other constipation; K64.4 Residual hemorrhoidal skin tags; K64.8 Other hemorrhoids; G47.30 Sleep apnea, unspecified; E11.22 Type 2 diabetes mellitus with diabetic chronic kidney disease; I12.9 Hypertensive chronic kidney disease with stage 1 through stage 4 chronic kidney disease, or unspecified chronic kidney disease; N18.30 Chronic kidney disease, stage 3 unspecified; Z79.4 Long term (current) use of insulin; Z79.82 Long term (current) use of aspirin; Z79.899 Other long term (current) drug therapy; Z86.16 Personal history of COVID-19; Z87.891 Personal history of nicotine dependence
CPT/HCPCS: 45378; J7120

== ENCOUNTER 2022-01-16 13:46 | Outpatient (CLI) | payer MEDICARE ==
[2022-01-16 20:09] LABS: CALCIUM 10.3 mg/dL (8.5-10.3); CREATININE 1.1 mg/dL (0.4-1.0)
[2022-01-16 20:26] LABS: ESTIMATED AVERAGE GLUCOSE 166 mg/dL (70-100); HEMOGLOBIN A1c% 7.4 % (4.27-6.07)
== END 2022-01-16 13:47 | disposition home or self-care (01) ==
LOC: LAB.S 13:46
PROVIDERS: ATTEND Registered Nurse
DX: E11.9 Type 2 diabetes mellitus without complications (principal)
CPT/HCPCS: 36415; 80048; 82043; 82570; 83036

== ENCOUNTER 2022-01-17 08:00 | Outpatient (CLI) | payer MEDICARE ==
[2022-01-17 21:20] LABS: CREATININE,URINE 60.6 mg/dL; MICROALBUM/CREATININE RATIO,UR 8.3 ug/mg (<30.0); MICROALBUMIN,URINE 0.5 mg/dL (0-300.0)
== END 2022-01-17 23:59 | disposition home or self-care (01) ==
LOC: LAB 08:00
PROVIDERS: ATTEND Registered Nurse
DX: E11.9 Type 2 diabetes mellitus without complications (principal)
CPT/HCPCS: 82043; 82570

== ENCOUNTER 2022-04-30 20:56 | Emergency (ER) | payer MEDICARE ==
[2022-04-30 21:40] LABS: BASOPHILS # (AUTO) 0.1 10^3/uL (0.0-0.1); BASOPHILS % (AUTO) 0.6 %; EOSINOPHILS # (AUTO) 0.1 10^3/uL (0.0-0.7); EOSINOPHILS % (AUTO) 1.3 %; HCT - HEMATOCRIT 35.4 % (37.0-47.0); HGB - HEMOGLOBIN 11.4 g/dL (12.0-16.0); LYMPHOCYTES % (AUTO) 12.1 %; MEAN CORPUSCULAR HEMOGLOBIN 31.1 pg (27.0-31.0); MEAN CORPUSCULAR HGB CONC 32.2 g/dL (32.0-36.0); MEAN CORPUSCULAR VOLUME 96.5 fL (81.0-99.0); MEAN PLATELET VOLUME 10.7 fL (7.9-10.8); MONOCYTES # (AUTO) 0.7 10^3/uL (0.0-1.0); MONOCYTES % (AUTO) 8.3 %; NEUTROPHILS # (AUTO) 6.2 10^3/uL (1.5-6.6); NEUTROPHILS % (AUTO) 77.4 %; PLT - PLATELET COUNT 182 10^3/uL (130-450); RED BLOOD COUNT 3.67 10^6/uL (4.20-5.40); RED CELL DISTRIBUTION WIDTH 12.9 % (12.0-15.0)
[2022-04-30 21:53] LABS: ALBUMIN 4.2 g/dL (3.2-5.5); ALBUMIN/GLOBULIN RATIO 1.3 (1.0-2.2); BILIRUBIN,TOTAL 0.4 mg/dL (0.2-1.0); CREATININE 1.4 mg/dL (0.4-1.0); POTASSIUM 4.6 mmol/L (3.5-5.0); TOTAL PROTEIN 7.4 g/dL (6.7-8.2)
[2022-04-30] MEDS ORDERED: MORPHINE 2 MG/ML CARPUJECT IVP STA ×2 (21:57→23:06)
[2022-04-30] MEDS ORDERED: SODIUM CHLORIDE 0.9% 1,000 ML IV STA (21:58)
--- NOTE | 2022-04-30 22:07 | ED Physician Documentation ---
History of Present Illness - Stated complaint Stated Complaint: LLQ PX - Chief complaint Chief Complaint: Abd Pain - History obtained from History obtained from: Patient - Additonal information Additional information: 77-year-old woman with past medical history of diabetes, high blood pressure, hyperlipidemia, possible history of bowel obstruction about 5 years ago, past surgical history of possible hysterectomy 20 years ago per her report, p/w gradual onset constant "deep ache/burning" pain in the RLQ and LLQ, a/w nausea, better with standing, worse with lying flat or sitting. migrating, and radiating to the flanks a/w sensation of need to have a BM. pain started when she was driving home after lunchtime, where she had had a cocktail. patient had two soft, stringy brown BMs upon return home. took stool softener. Last colonoscopy was clean about 2 years ago. passing normal flatus. Review of Systems Ten Systems: 10 systems reviewed and negative Constitutional: denies: Fever, Chills GI: reports: Abdominal Pain, Nausea. denies: Vomiting, Constipation, Diarrhea, Bloody / black stool : denies: Dysuria, Frequency, Hesitancy Musculoskeletal: reports: Back pain PD PAST MEDICAL HISTORY - Past Medical History Cardiovascular: Hypertension, High cholesterol Respiratory: Asthma, Other (Covid + 08/04/2021 with cough, sore throat- now resolved and covid test negative 08/28/21) Neuro: Tremors Endocrine/Autoimmune: Type 2 diabetes GI: Chronic constipation, Hemorrhoids CONE MARKER: None : None HEENT: Chronic vision loss, Chronic sinusitis, Other Psych: Depression Musculoskeletal: Osteoporosis, Osteopenia Derm: None - Past Surgical History Past Surgical History: No General: Colonoscopy /CONE MARKER: Oophrectomy HEENT: Cataracts, Tonsil/Adenoidectomy - Present Medications Home Medications: Ambulatory Orders Medication Instructions Recorded Confirmed Cholecalciferol (Vitamin D3) 2,000 unit PO DAILY 02/05/20 08/29/21 [Vitamin D3] Losartan Potassium 100 mg PO DAILY 02/05/20 08/29/21 Metformin HCl 500 mg PO BID 02/05/20 08/29/21 Mirtazapine 15 mg PO QPM 02/05/20 08/25/21 Propranolol HCl 180 mg PO BID 02/05/20 08/25/21 Simvastatin 80 mg PO DAILY 02/05/20 08/29/21 Venlafaxine HCl [Venlafaxine HCl 150 mg PO BID 02/05/20 08/29/21 ER] flaxseed oiL [Flaxseed Oil] 1,000 mg PO DAILY 02/05/20 08/25/21 Indomethacin [Indomethacin ER] 75 mg PO DAILY 08/25/21 08/25/21 [place]-3/Dha/Epa/Fish Oil [Fish Oil 2 each PO DAILY 08/25/21 08/25/21 1,000 mg Softgel] - Allergies Allergies/Adverse Reactions: Allergies Allergy/AdvReac Type Severity Reaction Status Date / Time gabapentin Allergy Unknown Verified 08/29/21 08:27 procaine [From Novocain] Allergy Respiratory Verified 04/30/22 21:06 - Social History Does the pt smoke?: No Smoking Status: Never smoker Does the pt drink ETOH?: Yes Does the pt have substance abuse?: Yes - Immunizations Immunizations are current?: Yes - POLST Patient has POLST: No PD ED PE NORMAL - Vitals Vital signs reviewed: Yes - General General: Alert and oriented X 3, No acute distress, Well developed/nourished - HEENT HEENT: Atraumatic, PERRL, EOMI - Neck Neck: Supple, no meningeal sign - Cardiac Cardiac: RRR - Respiratory Respiratory: No respiratory distress, Clear bilaterally - Abdomen Abdomen: Non tender, Non distended, Other (discomfort to palpation BL LQ) - Rectal Rectal: Pt declined - Back Back: No CVA TTP - Derm Derm: Normal color, Warm and dry - Neuro Neuro: Alert and oriented X 3, No motor deficit, No sensory deficit - Psych Psych: Normal mood, Normal affect Results - Vitals Vitals: Vital Signs - 24 hr 04/30/22 21:04 Temperature 36.2 C L Heart Rate 87 Respiratory 18 Rate Blood Pressure 152/77 H O2 Saturation 99 Oxygen O2 Source Room air - Labs Labs: Laboratory Tests 04/30/22 04/30/22 04/30/22 21:35 21:35 21:35 WBC 8.0 RBC 3.67 L Hgb 11.4 L Hct 35.4 L MCV 96.5 MCH 31.1 H MCHC 32.2 RDW 12.9 Plt Count 182 MPV 10.7 Neut # (Auto) 6.2 Lymph # (Auto) 1.0 L [place] # (Auto) 0.7 Eos # (Auto) 0.1 Baso # (Auto) 0.1 Absolute Nucleated RBC 0.00 Nucleated RBC % 0.0 Sodium 137 Potassium 4.6 Chloride 102 Carbon Dioxide 26 Anion Gap 9.0 BUN 29 H Creatinine 1.4 H Estimated GFR (MDRD) 37 L Glucose 208 H Lactic Acid 2.0 Calcium 10.0 Total Bilirubin 0.4 AST 27 ALT 28 Alkaline Phosphatase 72 Total Protein 7.4 Albumin 4.2 Globulin 3.2 Albumin/Globulin Ratio 1.3 Lipase 30 Urine Color Urine Clarity Urine pH Ur Specific Anderson Urine Protein Urine Glucose (UA) Urine Ketones Urine Occult Blood Urine Nitrite Urine Bilirubin Urine Urobilinogen Ur Leukocyte Esterase Urine RBC Urine WBC Ur Squamous Epith Cells Urine Bacteria Ur Microscopic Review Urine Culture Comments 04/30/22 22:12 WBC RBC Hgb Hct MCV MCH MCHC RDW Plt Count MPV Neut # (Auto) Lymph # (Auto) [place] # (Auto) Eos # (Auto) Baso # (Auto) Absolute Nucleated RBC Nucleated RBC % Sodium Potassium Chloride Carbon Dioxide Anion Gap BUN Creatinine Estimated GFR (MDRD) Glucose Lactic Acid Calcium Total Bilirubin AST ALT Alkaline Phosphatase Total Protein Albumin Globulin Albumin/Globulin Ratio Lipase Urine Color YELLOW Urine Clarity CLEAR Urine pH 5.5 Ur Specific [place] >=1.030 H Urine Protein TRACE Urine Glucose (UA) 500 H Urine Ketones NEGATIVE Urine Occult Blood LARGE H Urine Nitrite NEGATIVE Urine Bilirubin NEGATIVE Urine Urobilinogen 0.2 (NORMAL) Ur Leukocyte Esterase NEGATIVE Urine RBC 11-25 H Urine WBC 0-3 Ur Squamous Epith Cells NONE SEEN Urine Bacteria None Seen Ur Microscopic Review INDICATED Urine Culture Comments NOT INDICATED PD MEDICAL DECISION MAKING - ED course ED course: 77yF Presents with abdominal pain, Possible UTI versus kidney stones versus bowel obstruction. Will obtain CT to evaluate further. Fluids ordered given appearance of mild ZAYRA. After antiemetic however patient states she is no longer having nausea. Pain medicine provided. Will reevaluate. Pain resolved status post 4 mg of morphine and after urinating. Urinalysis is highly suggestive of renal stones especially in the setting of her flank pain radiating to the abdomen. CT report showed no stones Or hydronephrosis but suggested possible mild colitis. Discussed with the patient. Return precautions provided. She will follow-up with her primary care provider outpatient. Also provided referral to urology for further evaluation of hematuria. Departure - Departure Disposition: 01 Home, Self Care Clinical Impression: ZAYRA (acute kidney injury), Hematuria Condition: Good Instructions: Kidney Stones Follow-Up: Corry Davidson MD [Physician No Access] - Comments: You were seen in the emergency department for evaluation of abdominal and back pain. It appears that you may have experienced kidney stones, given that you had a large amount of blood in your urine. The CT did not show kidney stones, but sometimes CT can miss stones. It is also possible that you passed it prior to getting the CT. CT was suggestive of possible mild colitis (inflammation of the intestines), but it seems more likely that this was a stone. You had a small amount of injury to your kidneys, so you need to drink lots of water over the next few days and follow-up with your primary doctor in the next couple weeks. I am enclosing a referral to urology (Dr. Davidson), and you can follow up with her at your primary provider's discretion. Please return to the e mergency department if you experience any new or worsening symptoms or have other concerns.
[2022-04-30 22:25] LABS: BILIRUBIN,URINE NEGATIVE (NEGATIVE); GLUCOSE, URINE (UA) 500 mg/dL (NEGATIVE); KETONES,URINE (UA) NEGATIVE (NEGATIVE); LEUKOCYTE ESTERASE, URINE NEGATIVE (NEGATIVE); NITRITE,URINE NEGATIVE (NEGATIVE); OCCULT BLOOD,URINE LARGE (NEGATIVE); PH,URINE 5.5 PH (5.0-7.5); PROTEIN,URINE TRACE mg/dL (NEGATIVE); UROBILINOGEN,URINE 0.2 (NORMAL) E.U./dL (NORMAL)
[2022-04-30 22:26] LABS: CLARITY,URINE CLEAR (CLEAR)
[2022-04-30 22:37] LABS: BACTERIA,URINE None Seen /HPF (None Seen); SQUAMOUS EPITHELIAL CELL,UR NONE SEEN (<= Few); WBC,URINE 0-3 /HPF (0-5)
--- NOTE | 2022-04-30 23:34 | CT Report ---
PROCEDURE: Abdomen/Pelvis W INDICATIONS: BL LQ abdominal pain CONTRAST: IV CONTRAST: Optiray 320 ml: 100 PO CONTRAST: *NO PO CONTRAST TECHNIQUE: After the administration of intravenous contrast, 5 mm thick sections acquired from the diaphragms to the symphysis. 5 mm thick coronal and sagittal reformats were acquired. For radiation dose reducti on, the following was used: automated exposure control, adjustment of mA and/or kV according to louis ent size. COMPARISON: None. FINDINGS: Image quality: Excellent. Lung bases:There is mild atelectasis and scarring in the lung bases. Heart: Heart is normal in size. ABDOMEN: Liver: No mass lesion. Gallbladder: Within normal limits without calcified gallstones. Biliary ducts: No biliary ductal dilatation. Pancreas: Unremarkable. Spleen: Normal in size. Adrenal Glands: No adrenal nodules. Kidneys and Ureters: No hydronephrosis. Stomach and Bowel: Stomach and small bowel loops are normal in caliber and wall thickness. The appen kash is normal in appearance. There is mild segmental wall thickening within the descending and sigmoi d colon, with evaluation limited by nondistention. Peritoneum: No abnormal intraperitoneal fluid. No free air. Ventral Wall: No hernia. Abdominal Nodes: No retroperitoneal or mesenteric adenopathy by size criteria. Vessels: Aorta and inferior vena cava are normal in size. PELVIS: Pelvic Organs:Uterus is surgically absent. Bladder: Unremarkable. Pelvic Nodes: No enlarged lymph nodes. Miscellaneous: No inguinal hernias are seen. Bones: Visualized osseous structures demonstrate no suspicious focal lesions. IMPRESSION: 1. Mild segmental wall thickening within the descending and sigmoid colon suggestive of a colitis. Ev aluation is limited by nondistention of the distal colon and correlation is recommended with clinical symptoms. 2. No evidence of appendicitis. Reviewed by: Cj Martinez MD on 04/30/2022 11:33 PM PDT Approved by: Cj Martinez MD on 04/30/2022 11:33 PM PDT Station ID: [id number]
[2022-05-01 01:55] VITALS: BP 134/75
== END 2022-05-01 01:56 | disposition home or self-care (01) ==
LOC: ED 20:56
DX: N17.9 Acute kidney failure, unspecified (principal); R31.9 Hematuria, unspecified; Z86.16 Personal history of COVID-19; I10 Essential (primary) hypertension; E11.9 Type 2 diabetes mellitus without complications
CPT/HCPCS: 36415; 74177; 80053; 81001; 83605; 83690; 85025; 96361; 96374; 99282; 99284; Q9967; 81003; 87086

== ENCOUNTER 2022-05-16 10:18 | Outpatient (CLI) | payer MEDICARE ==
--- NOTE | 2022-05-17 10:37 | Mammography Report ---
BILATERAL DIGITAL SCREENING MAMMOGRAM 3D/2D: 05/16/2022 CLINICAL: Routine screening. Comparison is made to exams dated: 04/12/2021 mammogram, 04/11/2020 mammogram, 04/03/2019 mammogram, 04/01 mammogram - [facility], and 03/26/2017 mammogram - [facility]. There are scattered areas of fibroglandular density in both breasts (category b / 25%-50% glandular t issue). There is a possible 0.5 cm oval equal density focal asymmetry in the right breast at 1 o'clock anteri or depth. This is more prominent. No other significant masses, calcifications, or other findings are seen in either breast. IMPRESSION: INCOMPLETE: NEEDS ADDITIONAL IMAGING EVALUATION The possible 0.5 cm oval equal density focal asymmetry in the right breast resembles a cyst or a lymp h node and is indeterminate. Additional views with possible ultrasound are recommended. Based on the Tyrer Cuzick model (a risk assessment model) the patients lifetime risk is 9.6% and her 10 year risk is 9.6%. According to the ACR, ACS, and NCCN guidelines, an annual breast MRI exam raffi g with mammogram is recommended if the patients lifetime risk is 20% or greater. This exam was interpreted at Station ID: [id number]. NOTE: For mammograms, a report in lay terms will be sent to the patient. Approximately 15% of breast malignancies will not be visualized mammographically. In the management of a palpable breast mass, a negative mammogram must not discourage biopsy of a clinically suspicious lesion. Electronically Signed By: Terrance Arango M.D. aty/:05/16/2022 17:36:46 ACR BI-RADS Category 0: Incomplete 3340F PARENCHYMAL PATTERN: (A) - The breast(s) demonstrate(s) scattered fibroglandular densities. BI-RADS CATEGORY: (0) - 0 Mammo and [place] [id number] Immediate follow-up LATERALITY: (R)
== END 2022-05-16 10:19 | disposition home or self-care (01) ==
LOC: DI 10:18
PROVIDERS: ATTEND Registered Nurse
DX: Z12.31 Encounter for screening mammogram for malignant neoplasm of breast (principal); R92.8 Other abnormal and inconclusive findings on diagnostic imaging of breast

== ENCOUNTER 2022-05-16 10:20 | Outpatient (CLI) | payer MEDICARE ==
--- NOTE | 2022-05-16 12:20 | DEXA Report ---
PROCEDURE: Dexa Spine and/or Hip INDICATIONS: OSTEOPOROSIS TECHNIQUE: Dual energy x-ray absorptiometry (DXA) was performed on a [employer] System. Regions measur ed are the AP Spine, femoral neck, and if needed forearm. COMPARISON: DEXA 04/11/2020. FINDINGS: Lumbar Spine: Bone Mineral Density 0.886 g/cm/cm,T score -2.5, -2.7 Left Hip: Bone Mineral Density 0.761 g/cm/cm,T score -2.0, unchanged Left Femoral Neck: Bone Mineral Density 0.692 g/cm/cm, T score -2.5, compared to -2.1 (T score greater or equal to -1.0: NORMAL) (T score from -1.1 to -2.4: OSTEOPENIA) (T score less than or equal to -2.5 to: OSTEOPOROSIS) Impression: Osteoporosis in the left femoral neck, progressive. Unchanged osteopenia within the left hip as well as slightly improved osteoporosis in the lumbar spine. Patients with diagnosis of osteoporosis or osteopenia should have regular bone mineral density assess ment. For those eligible for Medicare, routine testing is allowed once every 2 years. Testing frequ ency can be increased for patients who have rapidly progressing disease or for those who are receivin g medical therapy to restore bone mass. Reviewed by: Miranda Sarkar MD on 05/16/2022 12:19 PM PDT Approved by: Miranda Sarkar MD on 05/16/2022 12:19 PM PDT Station ID: [id number]
== END 2022-05-16 10:21 | disposition home or self-care (01) ==
LOC: DI 10:20
PROVIDERS: ATTEND Registered Nurse
DX: M81.0 Age-related osteoporosis without current pathological fracture (principal)

== ENCOUNTER 2022-05-31 08:13 | Outpatient (CLI) | payer MEDICARE ==
--- NOTE | 2022-05-31 10:26 | Mammography Report ---
UNILATERAL RIGHT DIGITAL DIAGNOSTIC MAMMOGRAM 3D/2D WITH SPOT COMPRESSION: 05/31/2022 CLINICAL: Patient returns today to evaluate a focal asymmetry in the right breast. Comparison is made to exams dated: 05/16/2022 mammogram, 04/12/2021 mammogram, 04/11/2020 mammogram, mammogram, 04/01/2018 mammogram - [facility], and 03/26/2017 mammogram - [facility]. There are scattered areas of fibroglandular density in the right breast (category b / 25%-50% glandul ar tissue). There is a possible 0.5 cm focal asymmetry in the right breast at 1 o'clock anterior depth. This is less prominent. No other significant masses or calcifications are seen in the breast. IMPRESSION: INCOMPLETE: NEEDS ADDITIONAL IMAGING EVALUATION The possible 0.5 cm focal asymmetry in the right breast is indeterminate. An ultrasound is recommend ed. Based on the Tyrer Cuzick model (a risk assessment model) the patients lifetime risk is 9.6% and her 10 year risk is 9.6%. According to the ACR, ACS, and NCCN guidelines, an annual breast MRI exam raffi g with mammogram is recommended if the patients lifetime risk is 20% or greater. This exam was interpreted at Station ID: [id number]. NOTE: For mammograms, a report in lay terms will be sent to the patient. Approximately 15% of breast malignancies will not be visualized mammographically. In the management of a palpable breast mass, a negative mammogram must not discourage biopsy of a clinically suspicious lesion. Electronically Signed By: Thien Epps M.D. lc/:05/31/2022 09:26:45 ACR BI-RADS Category 0: Incomplete 3340F PARENCHYMAL PATTERN: (A) - The breast(s) demonstrate(s) scattered fibroglandular densities. BI-RADS CATEGORY: (0) - 0 Ultrasound [id number] Immediate follow-up LATERALITY: (B)
--- NOTE | 2022-05-31 10:26 | Ultrasound Report ---
LIMITED ULTRASOUND OF RIGHT BREAST: 05/31/2022 CLINICAL: Patient returns today to evaluate a focal asymmetry in the right breast. Comparison is made to exams dated: 05/31/2022 mammogram, 05/16/2022 mammogram, 04/12/2021 mammogram, mammogram, 04/03/2019 mammogram, and 04/01/2018 mammogram - [facility]. Ultrasound of the right breast 1 o'clock region was performed. Rangel scale images of the real-time ex amination were reviewed. IMPRESSION: NEGATIVE There is no sonographic evidence of malignancy. There is no abnormality seen in the right breast to correspond with the mammography finding which lik kathy represents normal fibroglandular tissue. Return to annual mammogram screening schedule is recommended. This exam was interpreted at Station ID: [id number]. Electronically Signed By: Thien Epps M.D. lc/:05/31/2022 09:28:20 Ultrasound BI-RADS: 1 Negative BI-RADS CATEGORY: (1) - 1 Mammogram [id number] return to screening LATERALITY: (B)
== END 2022-05-31 08:14 | disposition home or self-care (01) ==
LOC: DI 08:13
PROVIDERS: ATTEND Registered Nurse
DX: R92.8 Other abnormal and inconclusive findings on diagnostic imaging of breast (principal)

== ENCOUNTER 2022-06-15 08:00 | Outpatient (CLI) | payer MEDICARE ==
--- NOTE | 2022-06-15 14:19 | XRAY Report ---
PROCEDURE: Chest 2 View X-Ray INDICATIONS: ACUTE COUGH TECHNIQUE: 2 views of the chest were acquired. COMPARISON: Chest and rib radiographs 04/11/2020 FINDINGS: Surgical changes and devices: None. Lungs and pleura: No pleural effusions or pneumothorax. Lungs are clear. Mediastinum: Mediastinal contours are normal. Heart size is normal. Bones and chest wall: No suspicious bony abnormalities. Soft tissues appear unremarkable. IMPRESSION: No acute cardiopulmonary abnormality. Reviewed by: Federico Courtney MD on 06/15/2022 2:18 PM PST Approved by: Federico Courtney MD on 06/15/2022 2:18 PM PST Station ID: [id number]
== END 2022-06-15 23:59 | disposition home or self-care (01) ==
LOC: DI.S 08:00
PROVIDERS: ATTEND Registered Nurse
DX: R05.1 Acute cough (principal)

== ENCOUNTER 2022-07-04 08:00 | Outpatient (CLI) | payer MEDICARE ==
[2022-07-04 14:22] LABS: BILIRUBIN,URINE NEGATIVE (NEGATIVE); GLUCOSE, URINE (UA) NEGATIVE (NEGATIVE); KETONES,URINE (UA) NEGATIVE (NEGATIVE); LEUKOCYTE ESTERASE, URINE NEGATIVE (NEGATIVE); NITRITE,URINE NEGATIVE (NEGATIVE); OCCULT BLOOD,URINE NEGATIVE (NEGATIVE); PROTEIN,URINE NEGATIVE (NEGATIVE); UROBILINOGEN,URINE 0.2 (NORMAL) E.U./dL (NORMAL)
[2022-07-04 14:26] LABS: CLARITY,URINE CLEAR (CLEAR)
[2022-07-04 14:39] LABS: BACTERIA,URINE Rare /HPF (None Seen); CRYSTALS,URINE 26-50 Uric Acid /LPF; RBC,URINE 0-5 /HPF (0-5); SQUAMOUS EPITHELIAL CELL,UR FEW Squamous (<= Few); WBC,URINE 0-3 /HPF (0-5)
== END 2022-07-04 23:59 | disposition home or self-care (01) ==
LOC: LAB.S 08:00
PROVIDERS: ATTEND Nurse Practitioner
DX: R30.0 Dysuria (principal)
CPT/HCPCS: 81001; 87086

== ENCOUNTER 2022-10-01 11:42 | Outpatient (CLI) | payer MEDICARE ==
[2022-10-01 15:51] LABS: BASOPHILS # (AUTO) 0.1 10^3/uL (0.0-0.1); BASOPHILS % (AUTO) 1.1 %; EOSINOPHILS # (AUTO) 0.2 10^3/uL (0.0-0.7); EOSINOPHILS % (AUTO) 3.2 %; HCT - HEMATOCRIT 38.3 % (37.0-47.0); LYMPHOCYTES # (AUTO) 1.5 10^3/uL (1.5-3.5); LYMPHOCYTES % (AUTO) 24.1 %; MEAN CORPUSCULAR HEMOGLOBIN 30.5 pg (27.0-31.0); MEAN CORPUSCULAR HGB CONC 31.3 g/dL (32.0-36.0); MEAN CORPUSCULAR VOLUME 97.2 fL (81.0-99.0); MEAN PLATELET VOLUME 11.3 fL (7.9-10.8); MONOCYTES # (AUTO) 0.8 10^3/uL (0.0-1.0); MONOCYTES % (AUTO) 12.2 %; NEUTROPHILS # (AUTO) 3.7 10^3/uL (1.5-6.6); NEUTROPHILS % (AUTO) 58.9 %; PLT - PLATELET COUNT 227 10^3/uL (130-450); RED BLOOD COUNT 3.94 10^6/uL (4.20-5.40); RED CELL DISTRIBUTION WIDTH 12.8 % (12.0-15.0); WHITE BLOOD COUNT 6.3 x10^3/uL (4.8-10.8)
[2022-10-01 17:07] LABS: THYROID STIMULATING HORMONE 2.26 uIU/mL (0.34-5.60)
[2022-10-01 17:14] LABS: ALBUMIN 4.1 g/dL (3.2-5.5); ALBUMIN/GLOBULIN RATIO 1.2 (1.0-2.2); ALKALINE PHOSPHATASE 69 IU/L (42-121); ALT ALANINE AMINOTRANSFERASE 26 IU/L (10-60); AST ASPARTATE AMINOTRANSFERASE 28 IU/L (10-42); BILIRUBIN,TOTAL 0.7 mg/dL (0.2-1.0); BUN - BLOOD UREA NITROGEN 24 mg/dL (6-20); CALCIUM 10.2 mg/dL (8.5-10.3); CARBON DIOXIDE - CO2 30 mmol/L (21-32); CHLORIDE 106 mmol/L (101-111); CHOL/HDL RATIO 3.7 (<4.4); CHOLESTEROL 175 mg/dL; CREATININE 0.9 mg/dL (0.4-1.0); GFR - MDRD 61 (>89); GLUCOSE 166 mg/dL (70-100); HDL CHOLESTEROL 47 mg/dL; LDL CHOLESTEROL,CALCULATED 84 mg/dL; LDL/HDL RATIO 1.8 (<4.4); POTASSIUM 4.8 mmol/L (3.5-5.0); SODIUM 141 mmol/L (135-145); TOTAL PROTEIN 7.6 g/dL (6.7-8.2); TRIGLYCERIDES 218 mg/dL; VLDL CHOLESTEROL 44 mg/dL
[2022-10-01 17:17] LABS: CREATININE,URINE 90.6 mg/dL
[2022-10-01 22:11] LABS: ESTIMATED AVERAGE GLUCOSE 186 mg/dL (70-100); HEMOGLOBIN A1c% 8.1 % (4.27-6.07)
== END 2022-10-01 11:43 | disposition home or self-care (01) ==
LOC: LAB.S 11:42
PROVIDERS: ATTEND Registered Nurse
DX: E11.9 Type 2 diabetes mellitus without complications (principal); Z79.899 Other long term (current) drug therapy; Z13.220 Encounter for screening for lipoid disorders; Z13.29 Encounter for screening for other suspected endocrine disorder
CPT/HCPCS: 36415; 80053; 80061; 82043; 82570; 83036; 83721; 84443; 85025

== ENCOUNTER 2022-12-13 12:28 | Outpatient (CLI) | payer MEDICARE ==
--- NOTE | 2022-12-13 14:54 | Ultrasound Report ---
PROCEDURE: Head or Neck Soft Tissue INDICATIONS: THYROID NODULE TECHNIQUE: Real-time scanning was performed of the thyroid gland, with image documentation. COMPARISON: None FINDINGS: Right: Thyroid lobe measures 3.2 x 2.1 x 1.6 cm, and is homogeneous in echotexture. Left: Thyroid lobe measures 4.7 x 1.6 x 1.7 cm, and is homogenous in echotexture. Isthmus: 1 mm thick. Nodule number: One Location: Right midpole Size: 0.5 cm. Composition: Cystic / almost completely cystic (0 points). Echogenicity: Anechoic (0 points). Shape: wider than tall. Margins: Smooth (0 points). Echogenic foci: None (0 points). Total points: 0 ACR TI-RADS category: Benign (0 points). Nodule number: Two Location: Right inferior pole Size: 1.1 cm. Composition: Solid (2 points). Echogenicity: Hypoechoic (2 points). Shape: wider than tall. Margins: Smooth (0 points). Echogenic foci: None (0 points). Total points: 4 ACR TI-RADS category: Moderately suspicious (4-6 points). Nodule number: Three Location: Right midpole Size: 1.9 cm. Composition: Solid (2 points). Echogenicity: Isoechoic (1 point). Shape: wider than tall. Margins: Smooth (0 points). Echogenic foci: None (0 points). Total points: 3 ACR TI-RADS category: Mildly suspicious (3 points). IMPRESSION: Mildly suspicious and moderate suspicious thyroid nodules, as above. No nodule meets siz e criteria for biopsy. 1 year follow-up is recommended per ACR consensus guidelines. ACR TI-RADS definitions and recommendations: TI-RADS 1 (benign): 0 points. FNA not needed. TI-RADS 2 (not suspicious): 2 points. FNA not needed. TI-RADS 3 (mildly suspicious): 3 points. "FNA if 2.5 cm or larger, follow up if 1.5 cm or larger (at 1, 3, and 5 years). TI-RADS 4 (moderately suspicious): 4-6 points. "FNA if 1.5 cm or larger, follow up if 1 cm or larger (at 1, 2, 3, and 5 years). TI-RADS 5 (highly suspicious): 7 points or more. "FNA if 1 cm or larger, follow up if 0.5 cm or larger (every year for 5 years). Reviewed by: Jose Manuel Cortez on 12/13/2022 2:53 PM PDT Approved by: Jose Manuel Cortez on 12/13/2022 2:53 PM PDT Station ID: [id number]
== END 2022-12-13 12:29 | disposition home or self-care (01) ==
LOC: DI 12:28
PROVIDERS: ATTEND Registered Nurse
DX: E04.2 Nontoxic multinodular goiter (principal)

== ENCOUNTER 2023-01-01 10:21 | Outpatient (CLI) | payer MEDICARE ==
[2023-01-01 15:05] LABS: CALCIUM 9.6 mg/dL (8.5-10.3); POTASSIUM 4.9 mmol/L (3.5-5.0)
[2023-01-01 15:12] LABS: CREATININE,URINE 87.4 mg/dL; MICROALBUM/CREATININE RATIO,UR 9.2 ug/mg (<30.0); MICROALBUMIN,URINE 0.8 mg/dL (0-300.0)
[2023-01-01 20:01] LABS: ESTIMATED AVERAGE GLUCOSE 171 mg/dL (70-100); HEMOGLOBIN A1c% 7.6 % (4.27-6.07)
== END 2023-01-01 10:22 | disposition home or self-care (01) ==
LOC: LAB.S 10:21
PROVIDERS: ATTEND Registered Nurse
DX: E11.9 Type 2 diabetes mellitus without complications (principal)
CPT/HCPCS: 36415; 80048; 82043; 82570; 83036

== ENCOUNTER 2023-05-09 14:06 | Outpatient (CLI) | payer MEDICARE | END 2023-05-09 14:07 | disposition home or self-care (01) | LOC: LAB.R 14:06 | PROVIDERS: ATTEND Student in an Organized Health Care Education/Training Program | DX: R19.7 Diarrhea, unspecified (principal) | CPT/HCPCS: 83630; 87045; 87046; 87177; 87209; 87427; 87493 ==

== ENCOUNTER 2023-05-20 12:55 | Outpatient (CLI) | payer MEDICARE ==
--- NOTE | 2023-05-21 10:11 | Mammography Report ---
BILATERAL DIGITAL SCREENING MAMMOGRAM 3D/2D: 05/20/2023 CLINICAL: Routine screening. Family history of breast cancer. Comparison is made to exams dated: 05/31/2022 mammogram, 05/16/2022 mammogram, 04/12/2021 mammogram, mammogram, 04/03/2019 mammogram, and 04/01/2018 mammogram - [facility]. There are scattered areas of fibroglandular density in both breasts (category b / 25%-50% glandular t issue). No significant masses, calcifications, or other findings are seen in either breast. IMPRESSION: NEGATIVE There is no mammographic evidence of malignancy. A 1 year screening mammogram is recommended. Based on the Tyrer Cuzick model (a risk assessment model) the patients lifetime risk is 8.8% and her 10 year risk is 0.0%. According to the ACR, ACS, and NCCN guidelines, an annual breast MRI exam raffi g with mammogram is recommended if the patients lifetime risk is 20% or greater. This exam was interpreted at Station ID: [id number]. NOTE: For mammograms, a report in lay terms will be sent to the patient. Approximately 15% of breast malignancies will not be visualized mammographically. In the management of a palpable breast mass, a negative mammogram must not discourage biopsy of a clinically suspicious lesion. Electronically Signed By: Gail Bustamante M.D., PH.D eb/penrad:05/20/2023 20:15:24 letter sent: No_Letter ACR BI-RADS Category 1: Negative 3341F PARENCHYMAL PATTERN: (A) - The breast(s) demonstrate(s) scattered fibroglandular densities. BI-RADS CATEGORY: (1) - 1 Mammogram [id number] 1 year screening LATERALITY: (B)
== END 2023-05-20 12:56 | disposition home or self-care (01) ==
LOC: DI.S 12:55
PROVIDERS: ATTEND Registered Nurse
DX: Z12.31 Encounter for screening mammogram for malignant neoplasm of breast (principal); Z80.3 Family history of malignant neoplasm of breast; R92.323 Mammographic fibroglandular density, bilateral breasts

== ENCOUNTER 2023-07-20 05:32 | Emergency (ER) | payer MEDICARE ==
--- NOTE | 2023-07-20 06:19 | ED Physician Documentation ---
PD HPI ABD PAIN - Stated complaint Stated Complaint: RT SIDE PX/NAUSEA - Chief complaint Chief Complaint: Abd Pain - History obtained from History obtained from: Patient - Additional information Additional information: HPI from patient. Patient c/o right flank pain since yesterday without inciting event while at home at rest. No apparent exacerbating nor ameliorating factors. Pain is associated with nausea but no vomiting. Denies urinary frequency, hematuria, fever. Since yesterday the pain is radiating to the RLQ. Urine appears dark- colored tonight but no gross hematuria. Review of Systems Constitutional: denies: Fever, Chills, Sweats Cardiac: reports: Reviewed and negative Respiratory: reports: Reviewed and negative GI: reports: Abdominal Pain, Nausea. 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 : None HEENT: Chronic vision loss, Chronic sinusitis, Other Psych: Depression Musculoskeletal: Osteoporosis, Osteopenia Derm: None - Past Surgical History Past Surgical History: No General: Colonoscopy /SENIOR SQL SERVER DATABASE DEVELOPER: Oophrectomy HEENT: Cataracts, Tonsil/Adenoidectomy - Present Medications Home Medications: Ambulatory Orders Medication Instructions Recorded Confirmed Cholecalciferol (Vitamin D3) 2,000 unit PO DAILY 02/05/20 07/20/23 [Vitamin D3] Losartan Potassium 100 mg PO DAILY 02/05/20 07/20/23 Metformin HCl 500 mg PO BID 02/05/20 07/20/23 Mirtazapine 15 mg PO QPM 02/05/20 07/20/23 Propranolol HCl 180 mg PO BID 02/05/20 07/20/23 Simvastatin 80 mg PO DAILY 02/05/20 07/20/23 Venlafaxine HCl [Venlafaxine HCl 150 mg PO BID 02/05/20 07/20/23 ER] flaxseed oiL [Flaxseed Oil] 1,000 mg PO DAILY 02/05/20 07/20/23 Indomethacin [Indomethacin ER] 75 mg PO DAILY 08/25/21 08/25/21 [place]-3/Dha/Epa/Fish Oil [Fish Oil 2 each PO DAILY 08/25/21 07/20/23 1,000 mg Softgel] Ondansetron Odt [Zofran Odt] 4 mg TL Q6H PRN #14 tablet 07/20/23 Tamsulosin [Flomax] 0.4 mg PO DAILY #14 cap 07/20/23 oxyCODONE [Roxicodone] 5 - 10 mg PO Q4-6H PRN #14 tablet 07/20/23 - Allergies Allergies/Adverse Reactions: Allergies Allergy/AdvReac Type Severity Reaction Status Date / Time gabapentin Allergy Unknown Verified 07/20/23 06:19 procaine [From Novocain] Allergy Respiratory Verified 07/20/23 06:19 sunflower seed Allergy Respiratory Verified 07/20/23 06:19 walnut Allergy Respiratory Verified 07/20/23 06:19 - Social History Does the pt smoke?: No Smoking Status: Never smoker Does the pt drink ETOH?: Yes Does the pt have substance abuse?: No - Immunizations Immunizations are current?: Yes - POLST Patient has POLST: No PD ED PE NORMAL - Vitals Vital signs reviewed: Yes - General General: Alert and oriented X 3, No acute distress, Well developed/nourished - HEENT HEENT: Moist mucous membranes - Cardiac Cardiac: RRR, No murmur - Respiratory Respiratory: No respiratory distress, Clear bilaterally - Abdomen Abdomen: Normal bowel sounds, Soft, Non tender, Non distended - Back Back: No CVA TTP - Derm Derm: Normal color, Warm and dry, No rash Results - Vitals Vitals: Oxygen O2 Source Room air - Labs Labs: Microbiology 07/20/23 07:47 Urine Culture - Final Urine,Random No growth Laboratory Tests 07/20/23 07:47 Urine Color BROWN Urine Clarity CLOUDY Urine pH 5.5 Ur Specific [place] >=1.030 H Urine Protein 100 H Urine Glucose (UA) NEGATIVE Urine Ketones TRACE Urine Occult Blood LARGE H Urine Nitrite NEGATIVE Urine Bilirubin NEGATIVE Urine Urobilinogen 0.2 (NORMAL) Ur Leukocyte Esterase NEGATIVE Urine RBC TNTC H Urine WBC >25 H Ur Epithelial Cells RARE Transitional Ur Squamous Epith Cells RARE Squamous Amorphous Sediment Few Urine Bacteria Few Ur Microscopic Review INDICATED Urine Culture Comments INDICATED - Rads (name of study) CT A/P Relevant Findings:: Prelim report reviewed, See rad report PD Medical Decision Making - ED course Complexity details: reviewed results, re-evaluated patient, considered differential, d/w patient ED course: CT A/P reveals 3mm proximal right ureteral calculus with moderate right hydroureteronephrosis, correlating with symptoms. She is given 15mg IV toradol and reports good relief of pain with this intervention. After CT results, she is also given 0.4mg flomax PO to facilitate passage of the ureteral calculus. She declined further analgesia in ED, reporting adequate pain relief with toradol IV. I am electronically submitting prescriptions for zofran, oxycodone, and flomax to patient's pharmacy of choice. Return precautions reviewed. I am prescribing a short course of short-acting opioid pain medication for this patient. 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 I have discussed that the opioids are for short term therapy only, and will not be refilled from the ED. Departure - Departure Disposition: 01 Home, Self Care Clinical Impression: Renal colic on right side Condition: Good Instructions: ED Stone Renal W Colic Follow-Up: Adeel Day MD [Provider Admit Priv/Credential] - Prescriptions: Tamsulosin [Flomax] 0.4 mg PO DAILY #14 cap oxyCODONE [Roxicodone] 5 - 10 mg PO Q4-6H PRN #14 tablet PRN Reason: Pain >8 Ondansetron Odt [Zofran Odt] 4 mg TL Q6H PRN #14 tablet PRN Reason: Nausea / Vomiting Comments: The CT scan shows a kidney stone lodged in the ureter (the connection from the kidney to the bladder) on the right side. This is the cause of your flank pain. The stone is small enough to likely be able to pass on its own (as opposed to needing a procedure to have it removed). You were given a dose of Flomax in the emergency department; this is a medication that can help increase the odds of passing the stone without needing a procedure, and decrease the time it takes to pass the stone. I have electronically submitted a prescription for this medication to the [facility] in [place]. I have also submitted a prescription for oxycodone (narcotic/opiate pain medication) as well as an anti- nausea medication (ondansetron). I am prescribing a short course of narcotic pain medication for you. These are potentially dangerous and addictive medications that should be used carefully. These medications may constipate you. Take an klay-vnp-gmofymq stool softener (docusate) twice daily with plenty of water while taking these medications. If you go 24 hours without a bowel movement, take zjki-rcc-hkakgaz miralax, per package instructions. Do not drink or drive while taking these medications. If you received narcotic or sedating medications while in the emergency depa rtment, do not drive for 24 hours. Store this medication in a safe, secure place and out of reach of children. It is a violation of federal law to give or sell this medication to another person or to use in a manner other than prescribed. The ED will not refill narcotic prescriptions, including prescriptions lost or stolen. To dispose of unwanted medications: 1. [facility] [address] in [place] has a medication drop box. They accept prescription medications (in pill form) Saturday through Saturday 9:00 a.m. to 5:00 p.m. 2. The [facility] [employer] accepts prescription medications (in pill form only) for disposal year round. Call for more information. 3. Contact the [facility] for the next [facility] sponsored prescription drug collection event. , [phone], or [phone]; Forms: PCP List Discharge Date/Time: 07/20/23 10:18
[2023-07-20] MEDS ORDERED: KETOROLAC 15 MG/ML VIAL IM STA (06:48)
--- NOTE | 2023-07-20 08:01 | CT Report ---
PROCEDURE: ABDOMEN/PELVIS WO INDICATIONS: right flank pain TECHNIQUE: A CT scan of the abdomen and pelvis was performed without the use of intravenous contrast. Images we re recorded and evaluated at appropriate window settings. Reformats: coronal and sagittal. For radiat ion dose reduction, the following was used: automated exposure control, adjustment of mA and/or kV ac cording to patient size. COMPARISON: None. FINDINGS: Image quality: Excellent. Lung bases and heart: Unremarkable. Liver: No solid mass. Gallbladder and biliary tree: No radiopaque stones or wall thickening. No biliary dilation. Spleen: No splenomegaly. Pancreas: No pancreatic ductal dilation. Adrenals: No adrenal nodule. Kidneys and ureters: Obstructing 3 mm stone in the proximal right ureter, resulting in moderate hydro nephrosis and perinephric fat stranding. Bowel and peritoneum: No bowel distension. No pathologic free fluid. Normal appendix. Lymph nodes: No central or retroperitoneal adenopathy. Vessels: No infrarenal aortic aneurysm. PELVIS Reproductive organs: Unremarkable. Bladder: No wall thickness, accounting for underdistention. Pelvic lymph nodes: No pelvic adenopathy by size criteria. Bones: No aggressive osseous abnormality. Other: No significant ventral or inguinal hernia. IMPRESSION: Obstructing 3 mm stone in the proximal right ureter, resulting in moderate hydronephrosis and perinep hric fat stranding. Reviewed by: Jose Manuel Cortez MD on 07/20/2023 8:00 AM [facility] Approved by: Jose Manuel Cortez MD on 07/20/2023 8:00 AM PST Station ID: [id number]
[2023-07-20 08:07] LABS: BILIRUBIN,URINE NEGATIVE (NEGATIVE); GLUCOSE, URINE (UA) NEGATIVE (NEGATIVE); KETONES,URINE (UA) TRACE mg/dL (NEGATIVE); LEUKOCYTE ESTERASE, URINE NEGATIVE (NEGATIVE); NITRITE,URINE NEGATIVE (NEGATIVE); OCCULT BLOOD,URINE LARGE (NEGATIVE); PH,URINE 5.5 PH (5.0-7.5); PROTEIN,URINE 100 mg/dL (NEGATIVE); UROBILINOGEN,URINE 0.2 (NORMAL) E.U./dL (NORMAL)
[2023-07-20 09:06] LABS: CLARITY,URINE CLOUDY (CLEAR); WBC,URINE >25 /HPF (0-5)
[2023-07-20 09:07] LABS: AMORPHOUS SEDIMENT,UR Few /LPF; EPITHELIAL CELLS,UR RARE Transitional /HPF (<= Few); RBC,URINE TNTC /HPF (0-5); SQUAMOUS EPITHELIAL CELL,UR RARE Squamous (<= Few)
[2023-07-20 09:08] LABS: BACTERIA,URINE Few /HPF (None Seen)
[2023-07-20] MEDS ORDERED: TAMSULOSIN 0.4 MG CAPSULE PO STA (09:55)
[2023-07-20 10:23] VITALS: BP 140/95; O2SAT 97
== END 2023-07-20 10:18 | disposition home or self-care (01) ==
LOC: ED 05:32
DX: N13.2 Hydronephrosis with renal and ureteral calculous obstruction (principal)
CPT/HCPCS: 74176; 81001; 87086; 96372; 99283; 99284; A9270; 81003

== ENCOUNTER 2023-10-15 11:33 | Outpatient (CLI) | payer MEDICARE ==
[2023-10-15 15:00] LABS: BASOPHILS # (AUTO) 0.1 10^3/uL (0.0-0.1); EOSINOPHILS # (AUTO) 0.2 10^3/uL (0.0-0.7); EOSINOPHILS % (AUTO) 3.1 %; HCT - HEMATOCRIT 36.7 % (37.0-47.0); HGB - HEMOGLOBIN 11.4 g/dL (12.0-16.0); LYMPHOCYTES # (AUTO) 0.8 10^3/uL (1.5-3.5); LYMPHOCYTES % (AUTO) 17.3 %; MEAN CORPUSCULAR HEMOGLOBIN 31.1 pg (27.0-31.0); MEAN CORPUSCULAR HGB CONC 31.1 g/dL (32.0-36.0); MEAN PLATELET VOLUME 11.5 fL (7.9-10.8); MONOCYTES # (AUTO) 0.8 10^3/uL (0.0-1.0); MONOCYTES % (AUTO) 16.4 %; NEUTROPHILS % (AUTO) 61.8 %; PLT - PLATELET COUNT 197 10^3/uL (130-450); RED BLOOD COUNT 3.67 10^6/uL (4.20-5.40); RED CELL DISTRIBUTION WIDTH 13.5 % (12.0-15.0); WHITE BLOOD COUNT 4.8 x10^3/uL (4.8-10.8)
[2023-10-15 16:14] LABS: ALBUMIN 4.3 g/dL (3.2-5.5); ALBUMIN/GLOBULIN RATIO 1.4 (1.0-2.2); BILIRUBIN,TOTAL 0.3 mg/dL (0.2-1.0); CALCIUM 10.4 mg/dL (8.5-10.3); CREATININE 1.2 mg/dL (0.6-1.3); POTASSIUM 4.1 mmol/L (3.5-4.5); TOTAL PROTEIN 7.3 g/dL (6.4-8.9)
== END 2023-10-15 11:34 | disposition home or self-care (01) ==
LOC: LAB.S 11:33
PROVIDERS: ATTEND Registered Nurse
DX: Z77.098 Contact with and (suspected) exposure to other hazardous, chiefly nonmedicinal, chemicals (principal); R11.0 Nausea; R51.9 Headache, unspecified; R41.3 Other amnesia
CPT/HCPCS: 36415; 80053; 85025

== ENCOUNTER 2023-10-17 12:56 | Outpatient (CLI) | payer MEDICARE | END 2023-10-17 12:57 | disposition home or self-care (01) | LOC: LAB 12:56 | PROVIDERS: ATTEND Registered Nurse | DX: R51.9 Headache, unspecified (principal); R11.0 Nausea; Z77.098 Contact with and (suspected) exposure to other hazardous, chiefly nonmedicinal, chemicals; R41.3 Other amnesia | CPT/HCPCS: 36415; 82375 ==

== ENCOUNTER 2023-11-15 07:27 | Outpatient (CLI) | payer MEDICARE ==
[2023-11-15 14:54] LABS: BASOPHILS % (AUTO) 0.7 %; EOSINOPHILS # (AUTO) 0.3 10^3/uL (0.0-0.7); EOSINOPHILS % (AUTO) 5.4 %; HGB - HEMOGLOBIN 10.8 g/dL (12.0-16.0); LYMPHOCYTES # (AUTO) 1.6 10^3/uL (1.5-3.5); LYMPHOCYTES % (AUTO) 28.8 %; MEAN CORPUSCULAR HEMOGLOBIN 30.6 pg (27.0-31.0); MEAN CORPUSCULAR HGB CONC 30.9 g/dL (32.0-36.0); MEAN CORPUSCULAR VOLUME 99.2 fL (81.0-99.0); MEAN PLATELET VOLUME 11.6 fL (7.9-10.8); MONOCYTES # (AUTO) 0.8 10^3/uL (0.0-1.0); MONOCYTES % (AUTO) 13.5 %; NEUTROPHILS # (AUTO) 2.8 10^3/uL (1.5-6.6); NEUTROPHILS % (AUTO) 51.1 %; PLT - PLATELET COUNT 175 10^3/uL (130-450); RED BLOOD COUNT 3.53 10^6/uL (4.20-5.40); RED CELL DISTRIBUTION WIDTH 13.1 % (12.0-15.0); WHITE BLOOD COUNT 5.6 x10^3/uL (4.8-10.8)
[2023-11-15 15:31] LABS: ALBUMIN 4.3 g/dL (3.2-5.5); ALBUMIN/GLOBULIN RATIO 1.6 (1.0-2.2); BILIRUBIN,TOTAL 0.3 mg/dL (0.2-1.0); CALCIUM 10.5 mg/dL (8.5-10.3); CREATININE 1.1 mg/dL (0.6-1.3); POTASSIUM 4.8 mmol/L (3.5-4.5)
[2023-11-15 15:35] LABS: THYROID STIMULATING HORMONE 4.08 uIU/mL (0.34-5.60)
== END 2023-11-15 07:28 | disposition home or self-care (01) ==
LOC: LAB.S 07:27
PROVIDERS: ATTEND Family Medicine
DX: T58.91XA Toxic effect of carbon monoxide from unspecified source, accidental (unintentional), initial encounter (principal); R74.8 Abnormal levels of other serum enzymes; R79.89 Other specified abnormal findings of blood chemistry
CPT/HCPCS: 36415; 80053; 81599; 84443; 85025

== ENCOUNTER 2024-02-07 09:17 | Emergency (ER) | payer MEDICARE ==
[2024-02-07 10:06] LABS: BASOPHILS % (AUTO) 0.3 %; EOSINOPHILS # (AUTO) 0.1 10^3/uL (0.0-0.7); EOSINOPHILS % (AUTO) 0.6 %; HCT - HEMATOCRIT 33.7 % (37.0-47.0); HGB - HEMOGLOBIN 10.8 g/dL (12.0-16.0); LYMPHOCYTES # (AUTO) 1.3 10^3/uL (1.5-3.5); LYMPHOCYTES % (AUTO) 10.5 %; MEAN CORPUSCULAR HEMOGLOBIN 30.8 pg (27.0-31.0); MEAN PLATELET VOLUME 10.7 fL (7.9-10.8); MONOCYTES # (AUTO) 1.7 10^3/uL (0.0-1.0); MONOCYTES % (AUTO) 14.6 %; NEUTROPHILS # (AUTO) 8.8 10^3/uL (1.5-6.6); NEUTROPHILS % (AUTO) 73.7 %; PLT - PLATELET COUNT 212 10^3/uL (130-450); RED BLOOD COUNT 3.51 10^6/uL (4.20-5.40); RED CELL DISTRIBUTION WIDTH 12.9 % (12.0-15.0); WHITE BLOOD COUNT 11.9 x10^3/uL (4.8-10.8)
[2024-02-07 10:07] LABS: SLIDE REVIEW? Indicated
[2024-02-07 10:19] LABS: ALBUMIN 4.4 g/dL (3.2-5.5); ALBUMIN/GLOBULIN RATIO 1.3 (1.0-2.2); BILIRUBIN,TOTAL 0.7 mg/dL (0.2-1.0); CALCIUM 9.9 mg/dL (8.5-10.3); CREATININE 2.3 mg/dL (0.6-1.3); POTASSIUM 4.8 mmol/L (3.5-4.5); TOTAL PROTEIN 7.7 g/dL (6.4-8.9)
[2024-02-07 10:38] LABS: DIFFERENTIAL COMMENT MANUAL=AUTO DIFF; PLATELET ESTIMATE, MANUAL NORMAL (130-450,000) (NORMAL); PLATELET MORPHOLOGY NORMAL APPEARANCE (NORMAL); RBC MORPHOLOGY (MULTIPLE) NORMAL APPEARANCE (NORMAL); WBC MORPHOLOGY (MULTIPLE) NORMAL APPEARANCE (NORMAL)
--- NOTE | 2024-02-07 12:26 | ED Physician Documentation ---
PD HPI ABD PAIN - Stated complaint Stated Complaint: LOWER ABD PX - Chief complaint Chief Complaint: Abd Pain - History obtained from History obtained from: Patient - Additional information Additional information: 78-year-old woman with history of renal colic x 2 developed right lower quadrant pain 2 days ago consistent with prior episodes of renal colic. She is been nauseous with dry heaves from it and notes decreased urination without other specific urinary complaints. No fevers. She has a history of laparoscopy "for her female organs," no other abdominal surgeries. 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 : None HEENT: Chronic vision loss, Chronic sinusitis, Other Psych: Depression Musculoskeletal: Osteoporosis, Osteopenia Derm: None - Past Surgical History Past Surgical History: No General: Colonoscopy /PARACHUTE MARKER: Oophrectomy HEENT: Cataracts, Tonsil/Adenoidectomy - Present Medications Home Medications: Ambulatory Orders Medication Instructions Recorded Confirmed Cholecalciferol (Vitamin D3) 2,000 unit PO DAILY 02/05/20 07/20/23 [Vitamin D3] Losartan Potassium 100 mg PO DAILY 02/05/20 07/20/23 Metformin HCl 500 mg PO BID 02/05/20 07/20/23 Mirtazapine 15 mg PO QPM 02/05/20 07/20/23 Propranolol HCl 180 mg PO BID 02/05/20 07/20/23 Simvastatin 80 mg PO DAILY 02/05/20 07/20/23 Venlafaxine HCl [Venlafaxine HCl 150 mg PO BID 02/05/20 07/20/23 ER] flaxseed oiL [Flaxseed Oil] 1,000 mg PO DAILY 02/05/20 07/20/23 Indomethacin [Indomethacin ER] 75 mg PO DAILY 08/25/21 08/25/21 [place]-3/Dha/Epa/Fish Oil [Fish Oil 2 each PO DAILY 08/25/21 07/20/23 1,000 mg Softgel] Ondansetron Odt [Zofran Odt] 4 mg TL Q6H PRN #14 tablet 07/20/23 Tamsulosin [Flomax] 0.4 mg PO DAILY #14 cap 07/20/23 oxyCODONE [Roxicodone] 5 - 10 mg PO Q4-6H PRN #14 tablet 07/20/23 HYDROcod/ACETAM 5/325 [[place] 5/325] 1 - 2 tab PO Q6H PRN #15 tablet 02/07/24 - Allergies Allergies/Adverse Reactions: Allergies Allergy/AdvReac Type Severity Reaction Status Date / Time gabapentin Allergy Unknown Verified 02/07/24 09:54 procaine [From Novocain] Allergy Respiratory Verified 02/07/24 09:54 sunflower seed Allergy Respiratory Verified 02/07/24 09:54 walnut Allergy Respiratory Verified 02/07/24 09:54 - Social History Does the pt smoke?: No Smoking Status: Never smoker Does the pt drink ETOH?: Yes Does the pt have substance abuse?: No - Immunizations Immunizations are current?: Yes - POLST Patient has POLST: No PD ED PE NORMAL - Vitals Vital signs reviewed: Yes - General General: Alert and oriented X 3 - Abdomen Abdomen: Normal bowel sounds, Soft, Non tender - Neuro Neuro: Alert and oriented X 3, Normal speech Results - Vitals Vitals: Vital Signs - 24 hr 02/07/24 02/07/24 02/07/24 09:47 11:53 13:00 Temperature 36.0 C L 36.5 C Heart Rate 72 70 70 Respiratory 18 16 18 Rate Blood Pressure 127/83 H 124/80 122/82 H O2 Saturation 96 98 100 02/07/24 15:00 Temperature 36.5 C Heart Rate 70 Respiratory 16 Rate Blood Pressure 120/80 O2 Saturation 100 Oxygen O2 Source Room air - Labs Labs: Laboratory Tests 02/07/24 02/07/24 02/07/24 10:02 10:02 12:42 WBC 11.9 H RBC 3.51 L Hgb 10.8 L Hct 33.7 L MCV 96.0 MCH 30.8 MCHC 32.0 RDW 12.9 Plt Count 212 MPV 10.7 Neut # (Auto) 8.8 H Lymph # (Auto) 1.3 L Jenkins # (Auto) 1.7 H Eos # (Auto) 0.1 Baso # (Auto) 0.0 Absolute Nucleated RBC 0.00 Band Neuts % (Manual) Not Reportable Abnorm Lymph % (Manual) Not Reportable Nucleated RBC % 0.0 Neutrophils # (Manual) Not Reportable Lymphocytes # (Manual) Not Reportable Monocytes # (Manual) Not Reportable Eosinophils # (Manual) Not Reportable Basophils # (Manual) Not Reportable Differential Comment MANUAL=AUTO DIFF Manual Slide Review Indicated WBC Morphology NORMAL APPEARANCE Platelet Estimate NORMAL (130-450,000) Platelet Morphology NORMAL APPEARANCE RBC Morph Micro Appear NORMAL APPEARANCE Sodium 135 Potassium 4.8 H Chloride 101 Carbon Dioxide 25 Anion Gap 9.0 BUN 37 H Creatinine 2.3 H Estimated GFR (MDRD) 21 L Glucose 198 H Calcium 9.9 Total Bilirubin 0.7 AST 16 ALT 20 Alkaline Phosphatase 66 Total Protein 7.7 Albumin 4.4 Globulin 3.3 Albumin/Globulin Ratio 1.3 Lipase 10 L Urine Color YELLOW Urine Clarity HAZY Urine pH 5.5 Ur Specific [place] >=1.030 H Urine Protein 30 H Urine Glucose (UA) NEGATIVE Urine Ketones 15 H Urine Occult Blood SMALL H Urine Nitrite NEGATIVE Urine Bilirubin SMALL H Urine Urobilinogen 0.2 (NORMAL) Ur Leukocyte Esterase NEGATIVE Urine RBC 11-25 H Urine WBC 0-3 Ur Squamous Epith Cells FEW Squamous Urine Bacteria Rare Ur Microscopic Review INDICATED Urine Culture Comments NOT INDICATED - Rads (name of study) CT KUB Relevant Findings:: Final report received, EMP independent interpretation of khris hatch PD Medical Decision Making - ED course Complexity details: reviewed results (CBC showing mild leukocytosis, CMP notable for ZAYRA and a prerenal pattern.) ED course: She has a history of renal colic and presents with similar pain. Workup in the emergency department demonstrates a unremarkable CBC save mild leukocytosis and mild anemia. She does have ZAYRA on her CMP with her baseline creatinine being 1.1 and today is 2.3. CT imaging demonstrates a 5 mm right mid ureteral stone with hydronephrosis. I discussed the case by phone with Dr. Day our on-call urologist who feels that outpatient follow-up is appropriate and he will have the office contact her. In the interim she was advised to hold NSAIDs (she says she was previously told not to take them because of her kidney function) and drink plenty of fluids. Departure - Departure Disposition: 01 Home, Self Care Clinical Impression: Renal colic Condition: Good Record reviewed to determine appropriate education?: Yes Instructions: ED Stone Renal W Colic Follow-Up: Adeel Day MD [Provider Admit Priv/Credential] - Prescriptions: HYDROcod/ACETAM 5/325 [[place] 5/325] 1 - 2 tab PO Q6H PRN #15 tablet PRN Reason: Pain Comments: I sent your prescription electronically to [facility] in [place]. Today you were seen for a right-sided kidney stone measuring 5 mm. It is associated with some mild damage to your kidneys that probably is reversible but needs to be followed closely and as such Dr. Day, her urologist should be reaching out to you on Saturday for close follow-up appointment. We do want you to drink plenty of water and I would also like you to pause your losartan pending follow-up. Return for new or worsening symptoms. I am prescribing a short course of narcotic pain medication for you. These are potentially dangerous and addictive medications that should be used carefully. These medications may constipate you. Take an dsok-xda-vqcmdsx stool softener (docusate) twice daily with plenty of water while taking these medications. If you go 24 hours without a bowel movement, take xjnr-ebx-bxnoizs miralax, per package instructions. Do not drink or drive while taking these medications. If you received narcotic or sedating medications [facility], do not drive for 24 hours. Store this medication in a safe, secure place and out of reach of children. It is a violation of federal law to give or sell this medication to another person or to use in a manner other than prescribed. The ED will not refill narcotic prescriptions, including prescriptions lost or stolen. To dispose of unwanted medications: 1. [facility] provides a drop box for medication in pill form only (no liquids) 8:00 am to 4:30 p.m. Saturday-Saturday in the lobby of the [facility], [address] [place] [address]. Empty pills into ziplock bag before disposal. Call [phone] for information. 2.[employer] is a free service available to all [facility] residents. Go to [email or web address] Note that many narcotic pain relievers also contain Tylenol/acetaminophen. Please ensure that your total dose of acetaminophen from all sources does not exceed 3 g (3000 mg) per day. NOTE TO HIM Please CC records to her PCP, Julia Kaur associated with [facility]. Forms: PCP List
[2024-02-07] MEDS: SODIUM CHLORIDE 0.9% 1,000 ML IV STA (12:54)
[2024-02-07] MEDS: ONDANSETRON 4 MG/2 ML VIAL IVP STA (12:54)
[2024-02-07] MEDS: HYDROmorphone 1 MG/ML CARPUJECT IVP STA (12:55)
[2024-02-07 13:04] LABS: BILIRUBIN,URINE SMALL (NEGATIVE); GLUCOSE, URINE (UA) NEGATIVE (NEGATIVE); KETONES,URINE (UA) 15 mg/dL (NEGATIVE); LEUKOCYTE ESTERASE, URINE NEGATIVE (NEGATIVE); NITRITE,URINE NEGATIVE (NEGATIVE); OCCULT BLOOD,URINE SMALL (NEGATIVE); PH,URINE 5.5 PH (5.0-7.5); PROTEIN,URINE 30 mg/dL (NEGATIVE); UROBILINOGEN,URINE 0.2 (NORMAL) E.U./dL (NORMAL)
[2024-02-07 13:06] LABS: CLARITY,URINE HAZY (CLEAR)
[2024-02-07 13:11] VITALS: O2SAT 100
[2024-02-07 13:14] LABS: BACTERIA,URINE Rare /HPF (None Seen); SQUAMOUS EPITHELIAL CELL,UR FEW Squamous (<= Few); WBC,URINE 0-3 /HPF (0-5)
[2024-02-07 15:04] VITALS: BP 120/80
--- NOTE | 2024-02-07 15:15 | CT Report ---
PROCEDURE: Abdomen/Pelvis WO INDICATIONS: R abd pain TECHNIQUE: A CT scan of the abdomen and pelvis was performed without the use of intravenous contrast. Images we re recorded and evaluated at appropriate window settings. Reformats: coronal and sagittal. For radiat ion dose reduction, the following was used: automated exposure control, adjustment of mA and/or kV ac cording to patient size. COMPARISON: CT abdomen pelvis 07/20/2023 FINDINGS: Image quality: Diagnostic. Lower chest: Linear bibasilar opacities likely related to atelectasis versus scarring. Liver: No contour-deforming mass. Hepatic steatosis. Gallbladder: Unremarkable. Biliary tree: No intrahepatic or extrahepatic dilation, accounting for age. Spleen: No splenomegaly. Pancreas: No pancreatic ductal dilation. Adrenals: No adrenal nodule. Kidneys and ureters: Mild to moderate hydronephrosis with prominent perinephric stranding. There is p roximal hydroureter with hydroureter. Stone measures 5 mm Hounsfield units 352. Stomach, bowel and peritoneum: No gastric or small bowel dilation. No abnormal wall thickening. No pa thologic free fluid. Lymph nodes: No central or retroperitoneal adenopathy. Vessels: No infrarenal aortic aneurysm. Reproductive organs: Unremarkable. Bladder: Bladder wall thickness is normal, accounting for underdistention. No calcified bladder stone s. Pelvic lymph nodes: No adenopathy by size criteria. Bones: No aggressive osseous abnormality. Other: No significant ventral or inguinal hernia. IMPRESSION: Right hydronephrosis with hydroureter secondary to proximal ureteral stone. Reviewed by: Miranda Sarkar MD on 02/07/2024 3:14 PM PDT Approved by: Miranda Sarkar MD on 02/07/2024 3:14 PM PDT Station ID: [id number]
== END 2024-02-07 15:41 | disposition home or self-care (01) ==
LOC: ED 09:17
DX: N23 Unspecified renal colic (principal); I10 Essential (primary) hypertension; E78.00 Pure hypercholesterolemia, unspecified; J45.909 Unspecified asthma, uncomplicated; E11.9 Type 2 diabetes mellitus without complications; Z79.899 Other long term (current) drug therapy
CPT/HCPCS: 36415; 74176; 80053; 81001; 83690; 85025; 96374; 96375; 99284; J1170; 81003; 87086

== ENCOUNTER 2024-03-05 11:39 | Outpatient (CLI) | payer MEDICARE ==
[2024-03-05 12:08] LABS: POTASSIUM 4.4 mmol/L (3.5-4.5)
== END 2024-03-05 11:40 | disposition home or self-care (01) ==
LOC: LAB 11:39
PROVIDERS: ATTEND Family Medicine
DX: E11.69 Type 2 diabetes mellitus with other specified complication (principal)
CPT/HCPCS: 36415; 82565; 84132; 84520

== ENCOUNTER 2024-03-19 15:06 | Outpatient (CLI) | payer MEDICARE ==
--- NOTE | 2024-03-19 21:42 | Ultrasound Report ---
PROCEDURE: Renal (Retroperitoneal) INDICATIONS: URETERAL STONE WITH HYDRONEPHROSIS TECHNIQUE: Real-time scanning was performed of the retroperitoneal organs, with image documentation. COMPARISON: CT abdomen pelvis 02/07/2024 FINDINGS: Kidneys: Kidneys are mildly atrophic. Right kidney measures 9.1 cm long; left kidney measures 8.9 cm long. Right renal cortical thickness is 0.7 cm; left renal cortical thickness is 0.8 cm. No solid masses, hydronephrosis, or nephrolithiasis. Bladder: Pre-void bladder volume is 96 mL. Post-void residual is 74 mL. Pre-void images demonstrat e no intraluminal masses or stones. On pre-void images, bilateral ureteral jets are noted with color Doppler interrogation. (Of note, ureteral jets may not be detectable in up to 25% of cases due to i nsufficient differences in specific gravity between ureteral and bladder urine). Miscellaneous: No free abdominal fluid. IMPRESSION: No visualized stone or obstruction. Mild post void residual. Reviewed by: Miranda Sarkar MD on 03/19/2024 9:41 PM PDT Approved by: Miranda Sarkar MD on 03/19/2024 9:41 PM PDT Station ID: [id number]
== END 2024-03-19 15:07 | disposition home or self-care (01) ==
LOC: DI 15:06
PROVIDERS: ATTEND Urology
DX: N13.2 Hydronephrosis with renal and ureteral calculous obstruction (principal)

== ENCOUNTER 2024-04-10 16:09 | Outpatient (CLI) | payer MEDICARE ==
[2024-04-10 17:11] LABS: CREATININE 1.2 mg/dL (0.6-1.3)
[2024-04-10] MEDS ORDERED: iohexoL-300 100 ML VIAL ONE (17:16)
[2024-04-10] MEDS: iohexoL-300 100 ML VIAL IVP ONE (17:35)
--- NOTE | 2024-04-10 17:49 | CT Report ---
PROCEDURE: Angio Head/Neck INDICATIONS: DIZZINESS TECHNIQUE: After the administration of intravenous contrast, 1 mm thick sections acquired from the aortic arch t hrough the [place] of [place]. 3-dimensional nujnrqy-grkudutjl-xcycadffpr (MIP) and/or volume renderin g reformats were acquired of the central intracranial vasculature and neck separately. For radiation dose reduction, the following was used: automated exposure control, adjustment of mA and/or kV acco rding to patient size. CONTRAST: omni, 100 COMPARISON: None. Please note there is no noncontrast head CT available for review recently. 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 The ACAs are otherwise patent MCAs: Patent AComm: no aneurysm Venous sinuses: Not well evaluated Posterior circulation: Dominance: Left Vertebral arteries: no stenosis, occlusion, or aneurysm Basilar artery: unremarkable PComms: no aneurysm plane tender: normal and symmetric Neck angiography Aortic arch and subclavian arteries: normal flow CCAs: no stenosis, occlusion, or aneurysm. ICA origins (by NASCET criteria): Mild calcifications, no significant narrowing. ICAs: Patent. Overall tortuous course of the cervical ICAs, retropharyngeal in the right ECAs: origins are patent. Vertebral arteries: unremarkable Soft tissues: 1.5 cm low-density left thyroid nodule. Lung apices: no pneumothorax Bones: no acute or suspicious abnormality. Slight reversal of the normal cervical lordosis IMPRESSION: No large vessel occlusion or high-grade stenosis. If there is high concern for parenchymal pathology, consider further evaluation with MRI. Low density left thyroid nodule measuring 1.5 cm, consider nonurgent ultrasound follow-up. This may b e a colloid cyst. Other findings above. The estimate of stenosis included in the report of the imaging study was calculated using the NASCET method Reviewed by: Thien Epps MD on 04/10/2024 5:47 PM PDT Approved by: Thien Epps MD on 04/10/2024 5:47 PM PDT Station ID: [id number]
== END 2024-04-10 16:10 | disposition home or self-care (01) ==
LOC: LAB 16:09
PROVIDERS: ATTEND Family Medicine
DX: R42 Dizziness and giddiness (principal); R94.4 Abnormal results of kidney function studies; E04.1 Nontoxic single thyroid nodule
CPT/HCPCS: 36415; 70496; 70498; 82565; Q9967